=== PATIENT | female | born 1955 | race Caucasian/White ===

== ENCOUNTER → 2017-02-04 | Outpatient (CLI) | payer BC ==
[~2017-02-04] MED LIST: AMLO-110 PO; ATEN50TA PO; FOLI1TAB7 PO; FRCT/ PO; GABA-113 PO; GLC/500 PO; LISI40TA PO; LORA-741 PO; MELO15TA10 PO; METH2.5T PO; SERT-234 PO
--- NOTE | 2017-02-05 12:40 | MAMMOGRAPHY REPORT ---
BILATERAL DIGITAL SCREENING MAMMOGRAM TOMOSYNTHESIS WITH CAD: 02/04/2017 CLINICAL HISTORY: Routine screening. Patient has no complaints. TECHNIQUE: Breast tomosynthesis in addition to standard 2D mammography was performed. Current study was also evaluated with a Computer Aided Detection (CAD) system. COMPARISON: Comparison is made to exams dated: 01/05/2016 mammogram, 01/03/2014 mammogram, 01/04/2015 mammogram, 01/01/2013 mammogram, 12/27/2011 mammogram, and 11/30/2010 mammogram - [facility]. BREAST COMPOSITION: The tissue of both breasts is heterogeneously dense, which may obscure small ma sses. FINDINGS: A square dense mole marker overlies the 11:00 to 12:00 anterior left breast. There are a few benign-appearing calcifications scattered bilaterally. No new suspicious mass, architectural di stortion or cluster of microcalcifications is seen. IMPRESSION: ACR BI-RADS CATEGORY 1: NEGATIVE There is no mammographic evidence of malignancy. A 1 year screening mammogram is recommended. The p atient will receive written notification of the results. Approximately 10% of breast cancers are not detected with mammography. A negative mammographic repor t should not delay biopsy if a clinically suggestive mass is present. Melina Herndon M.D. ay/:02/04/2017 17:41:42 [employer]: Indy RON(Mitch)(M), [facility] letter sent: Normal 1/2 BI-RADS Code: ACR BI-RADS Category 1: Negative
== END | disposition home or self-care (01) ==
LOC: C.MAMM 11:59
PROVIDERS: ATTEND Obstetrics & Gynecology
DX: Z12.31 Encounter for screening mammogram for malignant neoplasm of breast (principal)

== ENCOUNTER → 2017-03-19 | Outpatient (CLI) | payer BC | END | disposition home or self-care (01) | LOC: C.PAPS 15:47 | PROVIDERS: ATTEND Obstetrics & Gynecology | DX: Z01.419 Encounter for gynecological examination (general) (routine) without abnormal findings (principal); N95.2 Postmenopausal atrophic vaginitis ==

== ENCOUNTER → 2017-06-04 | Outpatient (CLI) | payer BC ==
[2017-06-04 10:40] LABS: INSULIN FASTING 11.2 mU/L (3-25)
[2017-06-04 12:36] LABS: ALT/SGPT 49 U/L (12-78); AST/SGOT 25 U/L (15-37); BLOOD UREA NITROGEN 20 mg/dl (7-18); BUN/CREATININE RATIO 25.7 (10-20); CALCIUM 9.4 mg/dl (8.5-10.1); CARBON DIOXIDE 26 mmol/L (21-32); CHLORIDE 106 mmol/L (98-107); CREATININE 0.77 mg/dl (0.60-1.20); GLUCOSE 87 mg/dl (70-99); GLUCOSE,FASTING 87 mg/dl (70-99); POTASSIUM 4.2 mmol/L (3.5-5.1); SODIUM 139 mmol/L (136-145)
[2017-06-04 12:39] LABS: ALKALINE PHOSPHATASE 103 U/L (45-117); PHOSPHORUS 3.8 mg/dl (2.5-4.9)
[2017-06-04 14:28] LABS: CALCULATED INSULIN SENSITIVITY 0.335; GLUCOSE LOG 1.9395
== END | disposition home or self-care (01) ==
LOC: C.LAB1850 09:16
PROVIDERS: ATTEND Obstetrics & Gynecology
DX: E16.1 Other hypoglycemia (principal)

== ENCOUNTER → 2018-02-09 | Outpatient (CLI) | payer BC ==
[~2018-02-09] MED LIST changes: -FOLI1TAB7 PO; +FOLI1TAB8 PO
--- NOTE | 2018-02-10 07:46 | MAMMOGRAPHY REPORT ---
BILATERAL DIGITAL SCREENING MAMMOGRAM TOMOSYNTHESIS WITH CAD: 02/09/2018 CLINICAL HISTORY: Routine screening. TECHNIQUE: Breast tomosynthesis in addition to standard 2D mammography was performed. Current study was also evaluated with a Computer Aided Detection (CAD) system. COMPARISON: Comparison is made to exams dated: 02/04/2017 mammogram, 01/05/2016 mammogram, 01/04/2015 m ammogram, 01/03/2014 mammogram, 01/01/2013 mammogram, and 12/27/2011 mammogram - [facility]. BREAST COMPOSITION: The tissue of both breasts is heterogeneously dense, which may obscure small mas ses. FINDINGS: There are benign rim calcifications in the breasts. No suspicious mass, architectural dist ortion or cluster of microcalcifications is seen. IMPRESSION: ACR BI-RADS CATEGORY 1: NEGATIVE There is no mammographic evidence of malignancy. A 1 year screening mammogram is recommended. The pa tient will receive written notification of the results. Approximately 10% of breast cancers are not detected with mammography. A negative mammographic report should not delay biopsy if a clinically suggestive mass is present. Melina Herndon M.D. ay/:02/09/2018 12:42:24 [employer]: Jerica RON(Mitch)(Travis), [facility] letter sent: Normal 1/2 BI-RADS Code: ACR BI-RADS Category 1: Negative
== END | disposition home or self-care (01) ==
LOC: C.MAMM 12:17
PROVIDERS: ATTEND Obstetrics & Gynecology
DX: Z12.31 Encounter for screening mammogram for malignant neoplasm of breast (principal)

== ENCOUNTER → 2018-03-31 | Outpatient (CLI) | payer BC ==
[~2018-03-31] MED LIST changes: +ASCO1CAP3 PO; +ATOR-24 PO; +DICL-201 PO; +MULT-506 PO; +VALA500T60 PO; +ZOLP5TAB6 PO; +ZOVIRAX 5% TP; +[UNRECOGNIZED DRUG - OTHER] PO
== END | disposition home or self-care (01) ==
LOC: C.PAPS 13:50
PROVIDERS: ATTEND Obstetrics & Gynecology
DX: Z01.419 Encounter for gynecological examination (general) (routine) without abnormal findings (principal); N87.1 Moderate cervical dysplasia

== ENCOUNTER 2024-10-26 14:28 | Inpatient (IN) ==
--- NOTE | 2024-10-26 14:46 | ED Triage Note ---
Date of Service October 26, 2024 Provider in Triage Author: Kaylyn Pastor History of Present Illness This patient was briefly evaluated while in triage. An abbreviated physical exam was performed. This patient is a 69-year-old Female who presents to the ED for evaluation of nausea and vomiting since Friday. Has had diarrhea. Feels dizzy and lightheaded. Pt. unable to keep down food and fluids. Denies fevers. Has had some chills. No cough or URI symptoms. Physical Exam VITALS: Vitals are noted on the nurse's note and reviewed by myself. GENERAL: This is a 69 year old female, in no acute distress, nondiaphoretic, well-developed well-nourished. SKIN: No obvious rashes, edema, erythema HEAD: Normocephalic atraumatic. EYES: Conjunctivae without injection, sclerae without icterus. NECK: No JVD. LUNGS: No retractions or accessory muscle use. MUSCULOSKELETAL: Normal gait. NEURO: Patient was alert and oriented to person place and time. No focal neurological deficits. Initial orders for labs and / or imaging were placed and patient was placed in the waiting area until a bed is available. Please see further documentation for the full ED course.
[2024-10-26] MEDS: ONDANSETRON INJ 2 MG/ML 2 ML VIAL IV STA (16:03)
[2024-10-26 16:21] LABS: Basophils # (auto) 0.06 K/uL (0.00-0.20); Basophils % (auto) 0.5 %; Eosinophils # (auto) 0.01 K/uL (0.00-0.50); Eosinophils % (auto) 0.1 %; Hemoglobin 13.7 g/dl (12.0-16.0); Immature Granulocytes # (auto) 0.03 K/uL (0.01-0.20); Immature Granulocytes % (auto) 0.2 %; Lymphocytes # (auto) 2.36 K/uL (1.20-3.40); Lymphocytes % (auto) 19.7 %; Mean Corpuscular Hemoglobin 30.6 pg (25.0-34.0); Mean Corpuscular Hgb Conc 35.1 g/dL (32.0-36.0); Mean Corpuscular Volume 87.2 fL (80.0-100.0); Mean Platelet Volume 9.8 fL (9.4-12.4); Monocytes # (auto) 1.25 K/uL (0.11-0.59); Monocytes % (auto) 10.4 %; Neutrophils % (auto) 69.1 %; Platelet Count 360 K/uL (130-400); RDW Coefficient of Variation 12.1 % (11.5-14.5); RDW Standard Deviation 39.2 fL (36.4-46.3); Red Blood Count 4.47 M/uL (4.20-5.40); White Blood Count 12.01 K/ul (4.8-10.8)
[2024-10-26 16:38] LABS: Albumin Globulin Ratio 1.9 (0.9-2); BUN Creatinine Ratio 24.3 (10-20); Bilirubin,Total 1.3 mg/dl (0.2-1.0); Calcium 9.9 mg/dl (8.6-10.3); Creatinine Clr Calc Pharmacy 55.7 ml/min; Globulin 2.7 gm/dl (2.5-4.0); Potassium 2.8 mmol/L (3.5-5.1); Total Protein 7.7 gm/dl (6.0-8.3)
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
[2024-10-26 17:50] LABS: Magnesium 2.1 mg/dl (1.7-2.4)
[2024-10-26] MEDS: FAMOTIDINE 20MG IV PUSH 20 MG/5 ML SYR IV STA (18:14)
[2024-10-26] MEDS: PROMETHAZINE 12.5 MG/50.5 ML BAG IV STA (18:18)
[2024-10-26] MEDS: SODIUM CHLORIDE 0.9% 1,000 ML IV ONE (18:18)
--- NOTE | 2024-10-26 18:30 | XRay Report ---
EXAM: Radiograph of the Chest 1 View INDICATION: Dizziness. TECHNIQUE: Frontal view of the chest. COMPARISON: 04/03/2018 FINDINGS: Lungs and pleural spaces: No consolidation or pulmonary edema. No pleural effusion or pneumothorax. Heart: Shape and configuration within normal limits allowing for technique. Mediastinum: Normal contour. Bones/joints: Stable mild scoliotic curvature of the thoracic spine. Visualized portion of the posterior upper lumbar fusion hardware grossly intact. No acute osseous abnormality. Soft tissues: No abnormality noted. No radiopaque foreign body noted. Upper abdomen: No abnormality noted. IMPRESSION: No acute cardiopulmonary disease. ACT 112: Negative or not required by law. Electronically signed by Millie Izaguirre 10-26-2024 6:29 PM
[2024-10-26 18:47] LABS: Adenovirus PCR Not Detected (NotDetected); Bordetella parapertussis PCR Not Detected (NotDetected); Bordetella pertussis PCR Not Detected (NotDetected); Chlamydia pneumoniae PCR Not Detected (NotDetected); Coronavirus 229E PCR Not Detected (NotDetected); Coronavirus CoV-2 (COVID19)PCR Not Detected (NotDetected); Coronavirus HKU1 PCR Not Detected (NotDetected); Coronavirus NL63 PCR Not Detected (NotDetected); Coronavirus OC43PCR Not Detected (NotDetected); Human Metapneumovirus PCR Not Detected (NotDetected); Influenza A PCR Not Detected (NotDetected); Influenza B PCR Not Detected (NotDetected); Mycoplasma pneumoniae PCR Not Detected (NotDetected); Parainfluenza Virus 1 PCR Not Detected (NotDetected); Parainfluenza Virus 2 PCR Not Detected (NotDetected); Parainfluenza Virus 3 PCR Not Detected (NotDetected); Parainfluenza Virus 4 PCR Not Detected (NotDetected); Respiratory Syncytial VirusPCR Not Detected (NotDetected); Rhinovirus/Enterovirus PCR Not Detected (NotDetected)
[2024-10-26] MEDS: OPTIRAY 320 100ml IV ONE (18:58)
[2024-10-26 19:52] LABS: Appearance Urine Clear (Clear); Bacteria Urine Automated None Seen (None Seen); Bilirubin Urine Negative (Negative); Blood Urine Negative (Negative); Cast Urine Automated 0-2 /lpf (0-2); Color Urine Yellow; Epithelial Cell Urine Auto 0-2 /hpf (0-2); Glucose Urine UA Negative (Negative); Ketones Urine Trace (Negative); Leukocyte Esterase Urine 1+ (Negative); Nitrite Urine Negative (Negative); Protein Urine Negative (Negative); RBC Urine Automated 0-2 /hpf (0-2); Specific Gravity Urine 1.022 (1.000-1.030); Urobilinogen Urine Negative (Negative); WBC Urine Automated 0-5 /hpf (0-5); pH Urine 7.5 (4.5-7.5)
--- NOTE | 2024-10-26 20:00 | CT Scan Report ---
CT ABDOMEN and PELVIS with INTRAVENOUS CONTRAST HISTORY: Abdominal pain TECHNIQUE: CT abdomen and pelvis with contrast. IV CONTRAST: 100 mL of OMNIPAQUE 300 ENTERIC CONTRAST: Not Given COMPARISON: None FINDINGS: LOWER CHEST:Unremarkable. LIVER: No focal lesion identified. GALLBLADDER/BILIARY: Unremarkable gallbladder. No abnormal biliary dilatation. SPLEEN: Unremarkable. PANCREAS: Unremarkable. ADRENALS: Unremarkable. KIDNEYS: Tiny cysts, cortical scarring. No stones or hydronephrosis identified. PERITONEUM/RETROPERITONEUM. No lymphadenopathy by size criteria. No aortic aneurysm. GASTROINTESTINAL: No obstruction. Normal appendix. Multiple loops of small bowel demonstrate inflammatory changes with mild wall thickening and mild fluid distention. Colonic diverticulosis without evidence of diverticulitis. Duodenal diverticula. Mild gastric wall thickening. REPRODUCTIVE: Prominent periuterine vessels on the left side. Fibroids are present. In addition, the endometrium appears prominent in size on CT. URINARY BLADDER: Moderately distended. BONES: No acute findings. Lumbar spine the posterior instrumented fusion with laminectomies. IMPRESSION: Findings suggesting gastroenteritis. Normal appendix is identified. Fibroid uterus. Prominent periuterine vessels are identified, especially on the left side of the uterus. Such findings could be seen with pelvic congestion syndrome. In addition, the endometrium appears prominent in size on CT. This final finding would be an abnormality in a postmenopausal patient. Recommend gynecology evaluation to exclude malignancy. Electronically signed by Adelso Sands 10-26-2024 7:59 PM
[2024-10-26] MEDS: PROMETHAZINE 25 MG/51 ML BAG IV STA (20:47)
[2024-10-26] MEDS: SUCRALFATE 1 GM/10 ML UDC PO STA (20:49)
[2024-10-26] MEDS: DICYCLOMINE HCL 10 MG/ML 2 ML AMP/VIAL IM ONE (20:50)
[2024-10-26] MEDS: D5W AND NSS 1,000 ML IV SCH (21:29)
--- NOTE | 2024-10-26 23:02 | Emergency Department Note ---
ED Visit Note I was called to see the patient as she was not feeling well. She had been set for discharge. She had been in the ED for around 8-1/2 hours. She had been diagnosed with gastroenteritis. She had received IV Phenergan, IV Zofran, oral Carafate and IV saline. I talked with the patient, she was weak, nauseated and just did not feel well. She did not feel safe with discharge, At this point, hospitalization for further nausea control, further hydration was felt warranted. Unfortunately, the patient has not yet been able to provide a stool sample for testing. I spoke with case management, the on-call hospitalist was consulted. .
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
[2024-10-26] MEDS ORDERED: ACETAMINOPHEN 325 MG TAB PO PRN (23:09)
[2024-10-26 23:51] LABS: Thyroid Stimulating Hormone 1.182 uIu/ml (0.300-4.500)
[2024-10-26] MEDS: NovoLIN-R INSULIN PER UNIT CHARGE IV STA (23:54)
[2024-10-26] MEDS ORDERED: oxyCODONE HCL IR 5 MG TAB (IMMEDIATE RELEASE) PO PRN (23:55)
[2024-10-27] MEDS: ONDANSETRON HOME PACK 4MG OD TAB PO ONE (00:04)
[2024-10-27] MEDS: POTASSIUM CHLORIDE PWD 20 MEQ PACK PO STA (00:05)
[2024-10-27] MEDS: traZODone HCL 100 MG TAB PO SCH (00:08)
[2024-10-27] MEDS: NSS + 20MEQ KCL 20 MEQ/1,000 ML BAG IV ONE (00:14)
[2024-10-27] MEDS: LORazepam 0.5 MG TAB PO PRN (00:14)
[2024-10-27] MEDS: PROMETHAZINE 6.25 MG/50.25 ML BAG IV PRN (00:19)
[2024-10-27] MEDS: POTASSIUM CHLORIDE CRTAB 20 MEQ TABCR PO STA (03:24)
--- NOTE | 2024-10-27 03:53 | Ultrasound Report ---
EXAM: US gallbladder CLINICAL HISTORY: Hx of RUQ pain, Nausea. TECHNIQUE: An ultrasound examination of the RUQ was performed using greyscale imaging and color Doppler. Scanning was performed with the patient in the supine position. COMPARISON: CT abd 10/26/2024. FINDINGS: Liver: Liver size: Measurements in length 14.3 cm. The liver appears normal in size with homogeneous echotexture. No evidence of focal lesions, cysts, or masses. Hepatic vasculature appears normal. Gallbladder: Gallbladder size: The gallbladder is visualized and appears normal in size and shape. No gallstones, wall thickening (1 mm, thick), or pericholecystic fluid was noted. No evidence of gallbladder wall edema or signs of acute cholecystitis. Biliary Tree: Common bile duct diameter: 5.6 mm. The common bile duct is within normal limits in caliber and not dilated. No evidence of choledocholithiasis or biliary obstruction. Right Kidney: Right kidney size: Limited view. The right kidney appears normal in size with preserved corticomedullary differentiation. No evidence of hydronephrosis. A trace of perinephric fluid was noted. IMPRESSION: 1. Normal findings in the liver, gallbladder, and biliary tree. 2. Limited views of the right kidney, however, a trace of perinephric fluid was noted. Clinical correlation and further evaluation are advised. 3. No interval changes. Electronically signed by Maximiliano Elmore 10-27-2024 03:53 AM
--- OUTSIDE RECORDS SUMMARY | 2024-10-27 04:39 | External Medical Summary | Summary of Care ---
Author Name Unknown Organization [facility] Address [address] [place] [address] Phone [phone] Care Team Providers Care Guidance Secretary Name Role Phone Tommy Barillas DO Primary Care Provider [phone] Reason for Visit * Reason Comments eRx-Medication Refill Encounter Details Date Type Department Care Team (Late st Contact Info) Description 10/10/[facility]24 [facility] [address] [facility] [place] [address] Tommy Barillas DO [address] [facility] [place] [address] Reactive depression; Spinal stenosis of lumbar region with neurogenic claudication Allergies Active Allergy Reactions Criticality Noted Date Comments Sulfa Antibiotics Edema face/lips/tongue High 2001 documented as of this encounter (statuses as of 10/11/2024) Medications Multiple Vitamins-Calcium (ONE-A-DAY WOMENS FORMULA) Tablet Take 1 Tablet by mouth in the morning. Active valACYclovir HCl 500 MG Oral Tablet (Valtrex)Indications:Re current cold sores Take by mouth 1 Tablet in the morning. 90 Tablet 3 022 Active Ventolin HFA 108 (90 Base) MCG/ACT Inhalation Aerosol Solution Inhale by mouth 2 Puffs every 4 hours as needed for Wheezing. 18 g 3 022 Active Calcium Carbonate 600 MG Oral Tablet (Calcium 600) Take 1 Tablet by mouth in the morning. Active Fluorouracil 5 % External Cream (Efudex) Apply to affected areas twice daily for 3 weeks. For rough areas on face. 40 g 1 024 Active Folic Acid 1 MG Oral TabletIndications:Rheum atoid arthritis involving multiple sites with positive rheumatoid factor (HCC) TAKE 3 TABLETS BY MOUTH IN THE MORNING 270 Tablet 3 024 Active Atenolol 50 MG Oral Tablet (Tenormin)Indications:H TN, goal below 140/90 TAKE 1 AND 1/2 TABLETS BY MOUTH IN THE MORNING 135 Tablet 2 024 Active amLODIPine Besylate 5 MG Oral Tablet (Norvasc)Indications:HT N, goal below 140/90 TAKE 2 TABLETS BY MOUTH BEFORE BEDTIME 180 Tablet 1 024 Active Gabapentin 300 MG Oral Capsule (Neurontin)Indications: Spinal stenosis of lumbar region with neurogenic claudication TAKE 2 CAPSULES BY MOUTH IN THE MORNING AND 2 CAPSULES BY MOUTH BEFORE BEDTIME 360 Capsule 3 024 Active tiZANidine HCl 2 MG Oral Capsule Take 1 Capsule by mouth 3 times a day as needed for Muscle spasms. 135 Capsule 3 024 Active traZODone HCl 50 MG Oral Tablet (Desyrel)Indications:Pe rsistent insomnia TAKE 2 TABLETS BY MOUTH BEFORE BEDTIME 180 Tablet 1 024 Active Atorvastatin Calcium 40 MG Oral Tablet (Lipitor)Indications:Pu re hypercholesterolemia TAKE 1 TABLET BY MOUTH IN THE MORNING 90 Tablet 3 024 Active Meloxicam 15 MG Oral Tablet (Mobic) TAKE 1 TABLET BY MOUTH EVERY MORNING 90 Tablet 3 024 Active Leflunomide 10 MG Oral Tablet (Arava)Indications:Rheu matoid arthritis involving multiple sites with positive rheumatoid factor (HCC) TAKE 1 TABLET BY MOUTH IN THE MORNING 90 Tablet 024 Active HYDROcodone-Acetaminoph en 7.5-325 MG Oral TabletIndications:Rheum atoid arthritis involving multiple sites with positive rheumatoid factor (HCC),Sacroiliitis (HCC) Take 1 Tablet by mouth 3 times a day as needed for Pain, Severe. 90 Tablet 024 Active DULoxetine HCl 60 MG Oral Capsule Delayed Release Particles (Cymbalta)Indications:R eactive depression,Spinal stenosis of lumbar region with neurogenic claudication TAKE 1 CAPSULE BY MOUTH IN THE MORNING. DO NOT CUT, CRUSH OR CHEW. 30 Capsule 5 Active DULoxetine HCl 60 MG Oral Capsule Delayed Release Particles (Cymbalta)Indications:R eactive depression,Spinal stenosis of lumbar region with neurogenic claudication Take 1 Capsule by mouth in the morning. Do not cut, crush or chew. 30 Capsule 5 024 2023 Discontinued documented as of this encounter (statuses as of 10/11/2024) Active Problems Problem Noted Date Diagnosed Date Reactive depression 06/04/2023 Encounter for long-term (current) use of medicat ions 02/07/2023 Spinal stenosis of lumbar re gion with neurogenic claudication 04/23/2021 Sacroiliitis 11/14/2020 Pure hypercholesterolemia 10/07/2018 Persistent insomnia 10/07/2018 Hx of actinic keratosis 06/24/2018 Functional diarrhea 12/05/2017 Rheumatoid arthritis involvi ng multiple sites with positive rheumatoid factor 03/18/2016 Disorder of intervertebral disc 09/17/2010 Chronic rhinitis 08/27/2008 HTN (hypertension) 07/20/2008 Mitral valve prolapse 01/02/2004 Other cataract documented as of this encounter (statuses as of 10/11/2024) Resolved Problems Problem Noted Date Diagnosed Date Resolved Date History of 2019 novel reynoso virus disease (COVID-19) 11/27/2021 12/09/2022 Abdominal pain, right upper quadrant 12/05/2017 12/09/2022 RA (rheumatoid arthritis) 12/23/2012 Acute URI 08/27/2008 03/23/2009 Overview (03/23/2009): Resolved per Benign Acute Dxs Protocol Acute sinusitis 08/27/2008 03/23/2009 Overview (03/23/2009): Resolved per Benign Acute Dxs Protocol Cough 08/27/2008 11/13/2017 ADVANCE DIRECTIVE INFORMATION 08/13/2005 12/09/2022 Overview (08/13/2005): No, Advance Directive brochure given to patient. #[id number] 01/24/2004 Overview (02/23/2010): Renamed Per Clinical Trials Billing Project. Pt is a participant in the [facility] (Consortium of Rheumatology Researchers of [place]) national data collection study. For further information please call Dr Jesus Izaguirre or Jazmín Samuels, RN, CCRC at [phone] [facility] RESEARCH OTHER*[id number] 01/24/2004 05/07/2010 Overview (02/23/2010): Renamed Per Clinical Trials Billing Project. Pt is a participant in the [facility] (Consortium of Rheumatology Researchers of [facility]) national data collection study. For further information please call Dr Jesus Izaguirre or Jazmín Samuels, RN, CCRC at [phone] Arthritis, rheumatoid 2015 documented as of this encounter (statuses as of 10/11/2024) Immunizations Name Administration Dates Next Due COVID-19 mRNA, LNP-s, No Pre serve, 2-Dose Series (Moderna) 10/05/2021,02/09/2021,01/12/2021 COVID-19, MRNA-LNP, PF, 30 M CG/0.3 mL, 12 YRS AND ABOVE, IM (PFIZER-Comirnaty) 07/30/2023 COVID-19, MRNA-LNP, PF, 50 M CG/0.5 mL, 12 YRS AND ABOVE, IM (MODERNA-Spikevax) 08/31/2024 COVID-19, mRNA, LNP-s, PF, B ooster, 100mcg/0.5mg (Moderna) 06/05/2022 H1N1 2009 Influenza, IM 11/21/2009 MMR - Measles/Mumps/Rubella Vaccine 05/05/2019 Pneumococcal Conjugate Vacc, 13 Valent (Prevnar) 09/02/2017 Pneumococcal Conjugate Vacci ne, 20-valent ([id number]) 12/09/2022 Pneumococcal Polysaccharide PPV23 (Pneumovax) 11/18/2011,08/19/2006 Season Influenza, Quad, PF, Adjuvanted, 65+ Yrs, IM (FLUAD) 07/30/2023 Seasonal Influenza Vac., MDV , IM, 0.5 mL (Fluzone) 08/29/2014,08/28/2013,01/19/2013(Defer red: Patient Refused),09/16/2012,09/25/2011, 010,12/18/2009,09/28/2008,08/26/2007,1 Seasonal Influenza, High Dos e, Trivalent, PF, IM (Fluzone HD) 07/30/2024 Seasonal Influenza, PF, 6 M & above, IM , (FluLaval or Fluzone) 07/19/2020,07/26/2019,10/07/2018,08/22 Seasonal Influenza, Quadriva lent Hd (Fluzone Hd) 07/25/2022 Seasonal Influenza, Quadriva lent, No Preserve, IM 09/27/2021,09/02/2016,09/26/2015 TDAP (age 10 and older)(Boostrix) 01/19/2013 Zoster Vaccine Recombinant (Shingrix) 12/15/2018 ,10/07/2018 documented as of this encounter Social History Tobacco Use Types Packs/Day Years Used Date Smoking Tobacco: Never Smokeless Tobacco: Never Alcohol Use Standard Drinks/Week Comments Yes 0 (1 standard drink = 0.6 oz pur e alcohol) social PHQ-2 Answer Date Recorded PHQ Adult Total Score 0 10/07/2023 Hunger Vital Sign Answer Date Recorded Within the past 12 months, y ou worried that your food would run out before you got the money to buy more. Never true 12/29/19 21 Within the past 12 months, t he food you bought just didn't last and you didn't have money to get more. Never true 12/29/2020 Utilities Answer Date Recorded Do you have trouble paying y our heating, water, or electric bill? (Adult - for ages 18 years and over) Not on file 04/27/2024 Is your family able to pay t he heat, water, or electric bill? (Household - for ages 0-17 years) Not on file 04/27/2024 Does your family have access to good internet? (Household - for ages 0-17 years) Not on file 04/27/2024 Social Connections Answer Date Recorded How often do you feel lonely or isolated from those around you? (Adult - for ages 18 years and over) Not on file 04/27/2024 Comments No Sex and Gender Information Value Date Recorded Sex Assigned at Female 08/18/2023 11:35 AM EDT Legal Sex Female 7:13 AM EST Gender Identity Female 08/18/2023 11:35 AM EDT Sexual Orientation Straight 08/18/2023 11 :35 AM EDT Occupation Industry Job Start Date Job End Date Teacher Not on file Not on file Not on file documented as of this encounter Functional Status * Are you deaf or do you have serious difficulty hearing? Answer Date of Assessment Author No 04/23/2021 4:23 PM EDT Cristofer Sánchez RN * Are you blind or do you have serious difficulty seeing, even when wearing glasses? Answer Date of Assessment Author No 04/23/2021 4:23 PM EDT Cristofer Sánchez RN * Do you have serious difficulty walking or climbing stairs? (5 years old or older) Answer Date of Assessment Author Yes 04/24/2021 9:03 AM EDT Jf Quijano RN * Do you have difficulty dressing or bathing? (5 years old or older) Answer Date of Assessment Author No 04/23/2021 4:41 PM EDT Cristofer Sánchez RN * Because of a physical, mental, or emotional condition, do you have difficulty doing errands alone such as visiting a doctors office or shopping? (15 years old or older) Answer Date of Assessment Author Yes 04/23/2021 4:41 PM EDT Cristofer Sánchez RN documented as of this encounter Mental Status * Because of a physical, mental, or emotional condition, do you have serious difficulty concentrating, remembering, or making decisions? (5 years old or older) Answer Entry Date Author No 04/23/2021 4:23 PM EDT Cristofer Sánchez RN documented in this encounter Miscellaneous Notes * Telephone Encounter - Colby Godinez [facility] - 10/11/2024 2:36 PM ESTSigned Prescriptions: Disp Refills DULoxetine HCl 60 MG Oral Capsule Delayed *30 Cap*5 Sig: TAKE 1CAPSULE BY MOUTH IN THE MORNING. DO NOT CUT, CRUSH OR CHEW.Authorizing Provider: TOMMY BARILLAS User: COLBY GODINEZ documented in this encounter Plan of Treatment Upcoming Encounters Date Type Department Care Team (Late st Contact Info) Description 11/12/2024 10:15 AM EST Office Visit Dermatology [facility] [address] [facility] [place] [address] Jesus Gleason MD [address] [place] [address] 02/25/2025 1:00 PM EDT Office Visit Family Practice [facility] [address] [facility] [place] [address] Tommy Barillas, DO [address] [facility] [place] [address] 09/07/2025 10:00 AM EDT Office Visit Rheumatology [place] [address] [employer] [place] [address] Anil Hansen MD [facility] [place], [place] [address] Scheduled Procedures Name Priority Associated Diagnoses Date/Ti me COLONOSCOPY FLEXIBLE PROXIMA L DIAGNOSTIC Recall Encounter for screening colonoscopy Health Maintenance Due Date Last Done Comments Hepatitis C Screening 1975 Cologuard 2002 Fecal Occult Blood Test 2002 Sigmoidoscopy 2002 DTap/Tdap Vaccines (2 - Td or Tdap) 01/19/2023 01/19/2013 Adult Wellness Visit 2023 Depression Monitoring 10/07/2024 10/07/2023 Albumin/Creatinine Ratio 12/04/2024 022, 08/09/2014, 06/04/2013 GFR 08/04/2025 08/04/2024, 01/09, 08/18/2023, Additional history exists Mammogram 08/05/2025 08/05/2024, 07/12, 08/04/2023, Additional history exists DXA Scan 11/06/2027 11/06/2020 Colonoscopy 12/19/2027 12/19/2017, 07/2018, 11/08/2008 Colorectal Cancer Screening 12/19/2027 Lipid Panel 08/04/2029 08/04/2024, 06/11, 06/30/2018, Additional history exists Zoster Vaccines Completed 12/15/2018, 10/07/2018 Pneumococcal Vaccine: 65+ Years Completed 12/09/2022, 09/02/2017, 11/18/2011, Additional history exists Pap Smear Discontinued 03/08/2024, 05/2022, 04/16/2019, Additional history exists Influenza Vaccine (FLU shot) Completed 07/30/2024, 08/05/2023, 07/30/2023, Additional history exists COVID-19 Vaccine Completed 08/31/2024, , 06/05/2022, Additional history exists HPV (Gardasil) Vaccine Aged Out No lo nger eligible based on patient's age to complete this topic Hepatitis B Vaccine Aged Out No longe r eligible based on patient's age to complete this topic MENINGOCOCCAL (MENACTRA/MENVEO) Aged Out No longer eligible based on patient's age to complete this topic documented as of this encounter Medical Devices Implanted Type Area [employer] Device Identifier Shelf Expiration Date Model / Serial / Lot Dbx 10cc [id number] - [id number] - [id number] Implanted:Qt y: 1 on 04/23/2021 by Dewey Bennett MD at [facility] Tissue - Human MUSCULOSKELETAL TRANSPLANT FND [id number] 08/17/2022 [id number] / [id number] / LOT NA Pivox Oblique Lateral Spinal System Interbody Implanted:Qt y: 1 on 04/23/2021 by Dewey Bennett MD at OR [facility] N/A: Spine Lumbar Medtronic 06/10/2026 [id number] / / [id number] Description:Mat'l: Peek/lui nium alloy Vitoss Bimodal Foam Pack 2.5cc - [id number] - [id number] Implanted:Qt y: 1 on 04/23/2021 by Dewey Bennett MD at OR [facility] NEFTALY : SPINE 06/06/2022 / [id number] / [id number] Graft Bone Dbm Matrix 2.5x5cm - [id number] - [id number] Implanted:Qt y: 1 on 04/23/2021 by Dewey Bennett MD at OR [facility] [employer] [id number] 11/17/2023 [id number] / [id number] / LOT NA Vitoss Bimodal Foam Pack 2.5cc - [id number] - [id number] Implanted:Qt y: 1 on 04/23/2021 by Dewey Bennett MD at OR [facility] NEFTALY : SPINE [id number] 01/07/20221901 / [id number] / [id number] Screw Ped 6.5x45mm 124.465 - [id number] Implanted:Qt y: 2 on 04/23/2021 by Dewey Bennett MD at OR [facility] N/A: Spine Lumbar [employer] 124.465 / / 124.655 Globus Paramjit 55mm Implanted:Qt y: 1 on 04/23/2021 by Dewey Bennett MD at OR [facility] N/A: Spine Lumbar [employer] 124.655 / / 124.660 Globus Paramjit 60mm Implanted:Qt y: 1 on 04/23/2021 by Dewey Bennett MD at OR [facility] N/A: Spine Lumbar [employer] 124.660 / / documented as of this encounter Visit Diagnoses Diagnosis Reactive depression Dysthymic disorder Spinal stenosis of lumbar region with neurogenic claudication Spinal stenosis, lumbar region, with neurogenic claudication documented in this encounter Advance Directives * Full Code (Latest Code Status on File) Date Activated Date Inactivated Comments 04/23/2021 3:24 PM 04/26/2021 2:34 PM This order r eflects the patients wishes and were consensually agreed upon. * Full Code Date Activated Date Inactivated Comments 04/23/2021 7:23 AM 04/23/2021 3:24 PM This order r eflects the patients wishes and were consensually agreed upon. Care Teams Guidance Secretary Relationship Specialty Start Date End Date Tommy Barillas DO [address] [place] [address] PCP - General Family Medicine 10/07/18 documented as of this encounter
--- OUTSIDE RECORDS SUMMARY | 2024-10-27 04:40 | External Medical Summary | Summary of Care ---
Author Name Unknown Organization [facility] Address [address] [place] [address] Phone [phone] Care Team Providers Care Extruding Press Operator Name Role Phone SekouLalit drew Nati DO Primary Care Provider [phone] Reason for Visit * Reason Comments Rheum Follow Up Recheck RA Encounter Details Date Type Department Care Team (Late st Contact Info) Description 09/07/2024 9:00 AM EDT Office Visit Rheumatology [place] [id number] [place] [address] Anil Hansen MD [address] [place] [address] Rheumatoid arthritis involving multiple sites with positive rheumatoid factor (HCC)*; Encounter for long-term (current) use of medications; Spinal stenosis of lumbar region with neurogenic claudication Allergies Active Allergy Reactions Criticality Noted Date Comments Sulfa Antibiotics Edema face/lips/tongue High 2001 documented as of this encounter (statuses as of 09/07/2024) Medications Medication Sig Dispensed Refills Start Date End Date Status Multiple Vitamins-Calcium (ONE-A-DAY WOMENS FORMULA) Tablet Take 1 Tablet by mouth in the morning. Active valACYclovir HCl 500 MG Oral Tablet (Valtrex)Indications:Recu rrent cold sores Take by mouth 1 Tablet in the morning. 90 Tablet 3 07/16/2022 Active Ventolin HFA 108 (90 Base) MCG/ACT Inhalation Aerosol Solution Inhale by mouth 2 Puffs every 4 hours as needed for Wheezing. 18 g 3 07/16/2022 Active Calcium Carbonate 600 MG Oral Tablet (Calcium 600) Take 1 Tablet by mouth in the morning. Active Fluorouracil 5 % External Cream (Efudex) Apply to affected areas twice daily for 3 weeks. For rough areas on face. 40 g 1 11/14/2023 Active Folic Acid 1 MG Oral TabletIndications:Rheumat oid arthritis involving multiple sites with positive rheumatoid factor (HCC) TAKE 3 TABLETS BY MOUTH IN THE MORNING 270 Tablet 3 02/10/2024 Active Atenolol 50 MG Oral Tablet (Tenormin)Indications:HTN , goal below 140/90 TAKE 1 AND 1/2 TABLETS BY MOUTH IN THE MORNING 135 Tablet 2 02/28/2024 Active DULoxetine HCl 60 MG Oral Capsule Delayed Release Particles (Cymbalta)Indications:[place] ctive depression,Spinal stenosis of lumbar region with neurogenic claudication Take 1 Capsule by mouth in the morning. Do not cut, crush or chew. 30 Capsule 5 04/14/2024 Active amLODIPine Besylate 5 MG Oral Tablet (Norvasc)Indications:HTN, goal below 140/90 TAKE 2 TABLETS BY MOUTH BEFORE BEDTIME 180 Tablet 1 07/06/2024 Active Gabapentin 300 MG Oral Capsule (Neurontin)Indications:Sp inal stenosis of lumbar region with neurogenic claudication TAKE 2 CAPSULES BY MOUTH IN THE MORNING AND 2 CAPSULES BY MOUTH BEFORE BEDTIME 360 Capsule 3 07/13/2024 Active tiZANidine HCl 2 MG Oral Capsule Take 1 Capsule by mouth 3 times a day as needed for Muscle spasms. 135 Capsule 3 07/19/2024 Active traZODone HCl 50 MG Oral Tablet (Desyrel)Indications:Pers istent insomnia TAKE 2 TABLETS BY MOUTH BEFORE BEDTIME 180 Tablet 1 08/10/2024 Active Atorvastatin Calcium 40 MG Oral Tablet (Lipitor)Indications:Pure hypercholesterolemia TAKE 1 TABLET BY MOUTH IN THE MORNING 90 Tablet 3 08/11/2024 Active HYDROcodone-Acetaminophen 7.5-325 MG Oral TabletIndications:Rheumat oid arthritis involving multiple sites with positive rheumatoid factor (HCC),Sacroiliitis (HCC) Take 1 Tablet by mouth 3 times a day as needed for Pain, Severe. 90 Tablet 08/24/2024 Active Meloxicam 15 MG Oral Tablet (Mobic) TAKE 1 TABLET BY MOUTH EVERY MORNING 90 Tablet 3 08/30/2024 Active Leflunomide 10 MG Oral Tablet (Arava)Indications:Rheuma toid arthritis involving multiple sites with positive rheumatoid factor (HCC) TAKE 1 TABLET BY MOUTH IN THE MORNING 90 Tablet 09/06/2024 Active documented as of this encounter (statuses as of 09/07/2024) Active Problems Problem Noted Date Diagnosed Date [...] as of this encounter (statuses as of 09/07/2024) Resolved Problems Problem Noted Date Diagnosed Date Resolved Date History of 2019 novel reynoso virus disease (COVID-19) 11/27/2021 12/09/2022 Abdominal pain, right upper quadrant 12/05/2017 12/09/2022 RA (rheumatoid arthritis) 12/23/2012 Acute URI 08/27/2008 03/23/2009 Overview: Resolved per Benign Acute Dxs Protocol Acute sinusitis 08/27/2008 03/23/2009 Overview: Resolved per Benign Acute Dxs Protocol Cough 08/27/2008 11/13/2017 ADVANCE DIRECTIVE INFORMATION 08/13/2005 12/09/2022 Overview: No, Advance Directive brochure given to patient. #[id number]\\[id number] 01/24/2004 Overview: Renamed Per Clinical Trials Billing Project. Pt is a participant in the [employer] (Consortium of Rheumatology Researchers of [place]) national data collection study. For further information please call Dr Jesus Izaguirre or Jazmín Samuels, RN, CCRC at [phone] [facility] RESEARCH OTHER*[id number] 01/24/2004 05/07/2010 Overview: Renamed Per Clinical Trials Billing Project. Pt is a participant in the [employer] (Consortium of Rheumatology Researchers of [place]) national data collection study. For further information please call Dr Jesus Izaguirre or Jazmín Samuels RN, CCRC at [phone] Arthritis, rheumatoid 2015 documented as of this encounter (statuses as of 09/07/2024) Immunizations Name Administration Dates Next Due COVID-19 mRNA, LNP-s, No Pre serve, 2-Dose Series (Moderna) 10/05/2021,02/09/2021,01/12/2021 COVID-19, MRNA-LNP, 23-24, P F, 30 MCG/0.3 mL, 12 YRS AND ABOVE, IM (PFIZER-Comirnaty) 07/30/2023 COVID-19, MRNA-LNP, 23-24, P F, 50 MCG/0.5 mL, 12 YRS AND ABOVE, IM (MODERNA-Spikevax) 08/31/2024 COVID-19, mRNA, LNP-s, PF, B ooster, 100mcg/0.5mg (Moderna) 06/05/2022 H1N1 2009 Influenza, IM 11/21/2009 MMR - Measles/Mumps/Rubella Vaccine 05/05/2019 Pneumococcal Conjugate Vacc, 13 Valent (Prevnar) 09/02/2017 Pneumococcal Conjugate Vacci ne, 20-valent ([id number]) 12/09/2022 Pneumococcal Polysaccharide PPV23 (Pneumovax) 11/18/2011,08/19/2006 Season [...] Date Smoking Tobacco: Never Smokeless Tobacco: Never Tobacco Cessation:Counseling Given: Not Answered Alcohol Use Standard Drinks/Week Comments Yes 0 [...] years and over) Not on file 04/27/2024 Sex and Gender Information Value Date Recorded Sex Assigned at Female 08/18/2023 11:35 AM EDT Gender Identity Female 08/18/2023 11:35 AM EDT Sexual Orientation Straight 08/18/2023 11 :35 AM EDT Job Start Date Occupation Industry Not on file Not on file Not on file documented as of this encounter Last Filed Vital Signs Vital Sign Reading Time Taken Comments Blood Pressure - - Pulse - - Temperature 36.6 C (97.8 F) 09/07/2024 8:59 AM ED T Respiratory Rate - - Oxygen Saturation - - Inhaled Oxygen Concentration - - Weight 59.4 kg (131 lb) 09/07/2024 8:59 AM EDT Height - - Body Mass Index 23.96 10/20/2023 2:15 PM EST documented in this encounter Functional Status Functional Status Response Date of Assess ment Are you deaf or do you have serious difficulty h earing? No 04/23/2021 Are you blind or do you have serious difficulty seeing, even when wearing glasses? No 04/23/2021 Do you have serious difficul ty walking or climbing stairs? (5 years old or older) Yes 04/24/2021 Do you have difficulty dress ing or bathing? (5 years old or older) No 04/23/2021 Because of a physical, menta l, or emotional condition, do you have difficulty doing errands alone such as visiting a doctor s office or shopping? (15 years old or older) Yes 04/23/20 21 Cognitive Status Response Date of Assessm ent Because of a physical, menta l, or emotional condition, do you have serious difficulty concentrating, remembering, or making decisions? (5 years old or older) No 04/23/2021 documented as of this encounter Progress Notes * Anil Hansen MD - 09/07/2024 9:01 AM EDT Images from the original note were not included. Assessment and Plan Rheumatoid arthritis involving multiple sites with positive rheumatoid factor (HCC) Encounter for long-term (current) use of medications Spinal stenosis of lumbar region with neurogenic claudication Her rheumatoid arthritis is doing well with no disease activity. Will continue with labs every 6 months. Remains on leflunomide. Return to clinic 1 year. Rheumatology Synopsis: RPICC RA SYNOPSIS Date of RA Diagnosis: [birth year] (08/19/2023 3:00 PM) Current Treatment: LEF (08/19/2023 3:00 PM) Previous Treatment: MTX (08/19/2023 3:00 PM) 2009 Classification Criteria: Y (08/19/2023 3:00 PM) Seropositive or seronegative: Seropositive (08/19/2023 3:00 PM) RF and/or CCP: RF+ (08/19/2023 3:00 PM) Disease activity: Controlled Patient History History of Present Illness HPI:69 year old female presented to rheumatology clinic for Rheum Follow Up (Recheck RA) She is more dealing with her lumbar back disease. She had a recent ablation about 2 weeks ago but still having low back pain and right leg pain. She gets sciatica down the right leg. She also can getmuscle spasms in the quad and hamstrings. She has already had 2 previous back surgeries. Trying to avoid another surgery. Her RA itself is doing well. Remains on leflunomide. Had labs in July that were normal. ROS: Review of Systems was asked and the following other significant symptoms are present: Low back pain/sciatica Subjective Patient's past history, medications, and allergies were reviewed. Objective Physical Exam Temp 36.6 C (97.8 F) (Infrared ) | Wt 59.4 kg (131 lb) | LMP 05/14/2012 | BMI 23.96 kg/m | BSA 1.61 m Constitutional: no acute distress HEENT: normal: normocephalic, atraumatic; no masses, tenderness, or adenopathy Eyes: PERRLA, sclera and conjunctiva normal Neck: supple, no adenopathy CV: normal rate and rhythm, no murmur, gallops or rub Chest: normal respiratory effort, lungs clear to auscultation and percussion Abdomen: normal: soft, bowel sounds normal, no masses, tenderness or organomegaly Musculoskeletal: No synovitis, dactylitis or tenderness MSK/Joint exam (Homunculus) MSK Exam findings: Homunculus exam Studies: Labs and Imaging studies reviewed with pertinent findings noted below: Disease Treatment Response CDAI Scoring Patient Global: Provider Global: Tender (HEDRICK-28): 0 / 28 Swollen (HEDRICK-28): 0 / 28 CDAI: 2 CDAI (Clinical Disease Activity Index) [facility] Outcomes measures: Serial CDAI: Synopsis SmartLink 09/07/2024 09:00 08/19/2023 15:20 CDAI CDAI 2 7 - Serial CDAI: - Yes - Remission: - Yes - low disease activity Currently on csDMARD: Yes Currently on Biologic DMARD: No Vaccination status: COVID: Vaccine Series Complete Influenza:Vaccine complete for this season Pneumococcal:Vaccine Series complete Zoster:Vaccine Series Complete Last Hepatitis and TB testing: Hepatitis B: Not Tested, results not available Hepatitis C: Not Tested, results not available PPD or TB-Gold: Not Tested, results not available No results found for: "HBSAG", "HEPB", "HCVAB" No results found for: "TB GOLD AG NIL", "TB GOLD MITOGEN NIL", "PPD INDURATION", "PPD-OUTSIDE LAB","QUANTIFERON GOLD TB", "QUANTIFERON-TB PLUS", "QUANTIFERON-TB PLUS,1T", "QUANTIFERON-TB PLUS,4T" Wrap-Up documented in this encounter Nursing Notes * Rebeca Herrera LPN - 09/07/2024 8:58 AM EDT Chief Complaint Patient presents with Rheum Follow Up Recheck RA documented in this encounter Plan of Treatment Upcoming Encounters Date Type Department Care Team (Late st Contact Info) Description 11/12/2024 10:15 AM EST Office Visit Dermatology [facility] [address] [facility] [place] [address] Jesus Gleason MD [address] [place] [id number] 02/25/2025 1:00 PM EDT Office Visit Family Practice [facility] [address] [facility] [place] [address] Lalit Perera, [address] [place] [address] 09/07/2025 10:00 AM EDT Office Visit Rheumatology [place] [address] [place] [address] Anil Hansen MD [address] [place] [address] Scheduled Orders Name Type Priority Associated Diagnoses Orde r Schedule CBC WITH WBC DIFFERENTIAL Lab Routine Rheumatoid arthritis involving multiple sites with positive rheumatoid factor (HCC) Encounter for long-term (current) use of medications Every 6 Months for 2 Occurrences starting 09/07/2024 until 09/07/2025 COMPREHENSIVE METABOLIC PANEL Lab Routine Rheumatoid arthritis involving multiple sites with positive rheumatoid factor (HCC) Encounter for long-term (current) use of medications Every 6 Months for 2 Occurrences starting 09/07/2024 until 09/07/2025 Scheduled Procedures Name Priority Associated Diagnoses Date/Ti [...] Additional history exists Pap Smear Discontinued 03/08/2024, 0 05/2022, 04/16/2019, Additional history exists Influenza Vaccine [...] this encounter Medical Devices Implanted Type Area Front Desk Clerk Device Identifier Shelf Expiration Date Model / Serial / Lot Dbx 10cc [id number] - [id number] - [id number] Implanted:Qt y: 1 on 04/23/2021 by Dewey Bennett MD at [facility] Tissue - Human MUSCULOSKELETAL TRANSPLANT FND [id number] 08/17/2022 [id number] / [id number] / LOT NA Pivox Oblique Lateral Spinal System Interbody Implanted:Qt y: 1 on 04/23/2021 by Dewey Bennett MD at OR [facility] N/A: Spine Lumbar Medtronic 06/10/2026 [id number] / / [id number] Description:Mat'l: Peek/lui nium alloy Vitoss Bimodal Foam Pack 2.5cc - [id number] - [id number] Implanted:Qt y: 1 on 04/23/2021 by Dewey Bennett MD at OR [facility] NEFTALY : SPINE 06/06/2022 [id number] / [id number] / [id number] Graft Bone Dbm Matrix 2.5x5cm - [id number] - [id number] Implanted:Qt y: 1 on 04/23/2021 by Dewey Bennett MD at OR [facility] [employer] [id number] 11/17/2023 T42 210 / [id number] / LOT NA Vitoss Bimodal Foam Pack 2.5cc - [id number] - [id number] Implanted:Qt y: 1 on 04/23/2021 by Dewey Bennett MD at OR [facility] NEFTALY : SPINE [id number] 01/07/2022 2102- 1902 / [id number] / [id number] Screw Ped 6.5x45mm 124.465 - [id number] Implanted:Qt y: 2 on 04/23/2021 by Dewey Bennett MD at OR [facility] N/A: Spine Lumbar [employer] 124.465 / / 124.655 Globus Paramjit 55mm Implanted:Qt y: 1 on 04/23/2021 by Dewey Bennett MD at OR [facility] N/A: Spine Lumbar [employer] 124.655 / / 124.660 Globus Paramjit 60mm Implanted:Qt y: 1 on 04/23/2021 by Dewey Bennett MD at OR [facility] N/A: Spine Lumbar [employer] 124.660 / / documented as of this encounter Visit Diagnoses Diagnosis Rheumatoid arthritis involving multiple sites with positive rheumatoid factor (HCC)- Primary Encounter for long-term (current) use of medications Encounter for long-term (current) use of other medications Spinal stenosis of lumbar region with neurogenic [...] and were consensually agreed upon. Care Teams Extruding Press Operator Relationship Specialty Start Date End Date Lalit Perera DO [address] [place] [address] PCP - General Family Medicine 10/07/18 documented as of this encounter
--- OUTSIDE RECORDS SUMMARY | 2024-10-27 04:40 | External Medical Summary | Summary of Care ---
Author Name Unknown Organization [facility] Address [address] [place] [address] Phone [phone] Care Team Providers Care Brick Machine Operator Name Role Phone Tommy Barillas DO Primary Care Provider [phone] Reason for Visit * Reason Comments eRx-Medication Refill Encounter Details Date Type Department Care Team (Late st Contact Info) Description 08/28/2024 Refill Family Practice [facility] [place] [address] [facility] [place] [address] Tommy Barillas DO 200 [facility] [place] [address] Allergies Active Allergy Reactions Criticality Noted Date Comments Sulfa Antibiotics Edema face/lips/tongue High 2001 documented as of this encounter (statuses as of 08/30/2024) Medications Medication Sig Dispensed Refills Start Date End Date Status Multiple Vitamins-Calcium (ONE-A-DAY WOMENS FORMULA) Tablet Take 1 Tablet by mouth in the morning. Active valACYclovir HCl 500 MG Oral Tablet (Valtrex)Indications:Rec urrent cold sores Take by mouth 1 Tablet in the morning. 90 Tablet 3 07/16/20 22 Active Ventolin HFA 108 (90 Base) MCG/ACT Inhalation Aerosol Solution Inhale by mouth 2 Puffs every 4 hours as needed for Wheezing. 18 g 3 07/16/20 22 Active Calcium Carbonate 600 MG Oral Tablet (Calcium 600) Take 1 Tablet by mouth in the morning. Active Fluorouracil 5 % External Cream (Efudex) Apply to affected areas twice daily for 3 weeks. For rough areas on face. 40 g 1 11/14/19 24 Active Folic Acid 1 MG Oral TabletIndications:Rheuma toid arthritis involving multiple sites with positive rheumatoid factor (HCC) TAKE 3 TABLETS BY MOUTH IN THE MORNING 270 Tablet 3 02/10/20 24 Active Leflunomide 10 MG Oral Tablet (Arava)Indications:Rheum atoid arthritis involving multiple sites with positive rheumatoid factor (HCC) TAKE 1 TABLET BY MOUTH IN THE MORNING 90 Tablet 1 03/03/20 24 Active Atenolol 50 MG Oral Tablet (Tenormin)Indications:HT N, goal below 140/90 TAKE 1 AND 1/2 TABLETS BY MOUTH IN THE MORNING 135 Tablet 2 02/28/20 24 Active DULoxetine HCl 60 MG Oral Capsule Delayed Release Particles (Cymbalta)Indications:Re active depression,Spinal stenosis of lumbar region with neurogenic claudication Take 1 Capsule by mouth in the morning. Do not cut, crush or chew. 30 Capsule 5 04/14/20 24 Active amLODIPine Besylate 5 MG Oral Tablet (Norvasc)Indications:HTN , goal below 140/90 TAKE 2 TABLETS BY MOUTH BEFORE BEDTIME 180 Tablet 1 07/06/20 24 Active Gabapentin 300 MG Oral Capsule (Neurontin)Indications:S tobi stenosis of lumbar region with neurogenic claudication TAKE 2 CAPSULES BY MOUTH IN THE MORNING AND 2 CAPSULES BY MOUTH BEFORE BEDTIME 360 Capsule 3 07/13/20 24 Active tiZANidine HCl 2 MG Oral Capsule Take 1 Capsule by mouth 3 times a day as needed for Muscle spasms. 135 Capsule 3 07/19/20 24 Active traZODone HCl 50 MG Oral Tablet (Desyrel)Indications:Per sistent insomnia TAKE 2 TABLETS BY MOUTH BEFORE BEDTIME 180 Tablet 1 08/10/20 24 Active Atorvastatin Calcium 40 MG Oral Tablet (Lipitor)Indications:Pur e hypercholesterolemia TAKE 1 TABLET BY MOUTH IN THE MORNING 90 Tablet 3 08/11/20 24 Active HYDROcodone-Acetaminophe n 7.5-325 MG Oral TabletIndications:Rheuma toid arthritis involving multiple sites with positive rheumatoid factor (HCC),Sacroiliitis (HCC) Take 1 Tablet by mouth 3 times a day as needed for Pain, Severe. 90 Tablet 08/24/20 24 Active Meloxicam 15 MG Oral Tablet (Mobic) TAKE 1 TABLET BY MOUTH EVERY MORNING 90 Tablet 3 08/30/20 24 Active Meloxicam 15 MG Oral Tablet (Mobic) TAKE 1 TABLET BY MOUTH EVERY MORNING 90 Tablet 2 11/11/19 24 024 Discontinued documented as of this encounter (statuses as of 08/30/2024) Active Problems Problem Noted Date Diagnosed Date [...] as of this encounter (statuses as of 08/30/2024) Resolved Problems Problem Noted Date Diagnosed Date [...] No, Advance Directive brochure given to patient. #[id number]\JASON\THOR 01/24/2004 Overview: Renamed Per Clinical Trials Billing Project. Pt is a participant in the [employer] (Consortium of Rheumatology Researchers of [place]) national data collection study. For further information please call Dr Jesus Izaguirre or Jazmín Samuels, RN, CCRC at [phone] [facility] RESEARCH OTHER*[id number] 01/24/2004 05/07/2010 Overview: Renamed Per Clinical Trials Billing Project. Pt is a participant in the [employer] (Consortium of Rheumatology Researchers of [place]) national data collection study. For further information please call Dr Jesus Izaguirre or Jazmín Samuels RN, CCRC at [phone] Arthritis, rheumatoid 2015 documented as of this encounter (statuses as of 08/30/2024) Immunizations Name Administration Dates Next Due COVID-19 mRNA, LNP-s, No Pre serve, 2-Dose Series (Moderna) 10/05/2021,02/09/2021,01/12/2021 COVID-19, MRNA-LNP, 23-24, P F, 30 MCG/0.3 mL, 12 YRS AND ABOVE, IM (PFIZER-Comirnaty) 07/30/2023 COVID-19, mRNA, LNP-s, PF, B ooster, 100mcg/0.5mg (Moderna) 06/05/2022 H1N1 2009 Influenza, IM 11/21/2009 MMR - Measles/Mumps/Rubella Vaccine 05/05/2019 Pneumococcal Conjugate Vacc, 13 Valent (Prevnar) 09/02/2017 Pneumococcal Conjugate Vacci ne, 20-valent ([id number]) 12/09/2022 Pneumococcal Polysaccharide PPV23 (Pneumovax) 11/18/2011,08/19/2006 Season [...] documented as of this encounter Functional Status Functional Status Response [...] (15 years old or older) Yes 04/23/20 Cognitive Status Response Date of Assessm ent Because of a physical, menta l, or emotional condition, do you have serious difficulty concentrating, remembering, or making decisions? (5 years old or older) No 04/23/2021 documented as of this encounter Miscellaneous Notes * Telephone Encounter - Mandy Streeter RPh - 08/30/2024 11:04 AM EDT Signed Prescriptions: Disp Refills Meloxicam 15 MG Oral Tablet (Mobic) 90 Tab*3 Sig: TAKE 1 TABLET BY MOUTH EVERY MORNINGAuthorizing Provider: TOMMY BARILLAS User: MANDY STREETER---- documented in this encounter Plan of Treatment Upcoming Encounters Date Type Department Care Team (Late st Contact Info) Description 11/12/2024 10:15 AM EST Office Visit Dermatology [facility] [address] [place] [address] [address] Jesus Gleason MD [address] [place] [address] 02/25/2025 1:00 PM EDT Office Visit Family Practice [facility] [place] [address] [place] [address] [address] Tommy Barillas, DO [address] [place] [address] [address] Scheduled Procedures Name Priority Associated Diagnoses Date/Ti me COLONOSCOPY FLEXIBLE PROXIMA L DIAGNOSTIC Recall Encounter for screening colonoscopy Health Maintenance Due Date Last Done Comments Hepatitis C Screening 1975 Cologuard 2002 Fecal Occult Blood Test 2002 Sigmoidoscopy 2002 DTap/Tdap Vaccines (2 - Td or Tdap) 01/19/2023 01/19/2013 Adult Wellness Visit 2023 COVID-19 Vaccine ( season) 2024 07/30/2023, 06/05/2022, 10/05/2021, Additional history exists Depression Monitoring 10/07/2024 10/07/2023 Albumin/Creatinine Ratio 12/04/2024 [...] Completed 07/30/2024, 08/05/2023, 07/30/2023, Additional history exists HPV (Gardasil) Vaccine Aged Out No lo nger eligible based on patient's age to complete this topic Hepatitis B Vaccine Aged Out No longe r eligible based on patient's age to complete this topic MENINGOCOCCAL (MENACTRA/MENVEO) Aged Out No longer eligible based on patient's age to complete this topic documented as of this encounter Medical Devices Implanted Type Area Fresh Foods Cake Decorator Device Identifier Shelf Expiration Date Model / Serial / Lot Dbx 10cc [id number] - [id number] - [id number] Implanted:Qt y: 1 on 04/23/2021 by Dewey Bennett MD at OR [facility] Tissue - Human MUSCULOSKELETAL TRANSPLANT FND [id number] 08/17/2022 [id number] / [id number] / LOT NA Pivox Oblique Lateral Spinal System Interbody Implanted:Qt y: 1 on 04/23/2021 by Dewey Bennett MD at OR [facility] N/A: Spine Lumbar Medtronic 06/10/2026 [id number] / / [id number] Description:Mat'l: Peek/lui nium alloy Vitoss Bimodal Foam Pack 2.5cc - [id number] - [id number] Implanted:Qt y: 1 on 04/23/2021 by Dewey Bennett MD at OR [facility] NEFTALY : SPINE 06/06/2022 / [id number] / [id number] Graft Bone Dbm Matrix 2.5x5cm - [id number] - [id number] Implanted:Qt y: 1 on 04/23/2021 by Dewey Bennett MD at OR [facility] [employer] [id number] 11/17/2023 T42 210 / [id number] / LOT NA Vitoss Bimodal Foam Pack 2.5cc - [id number] - [id number] Implanted:Qt y: 1 on 04/23/2021 by Dewey Bennett MD at OR [facility] NEFTALY : SPINE [id number] 01/07/20222101- 190 / [id number] / [id number] Screw Ped 6.5x45mm 124.465 - [id number] Implanted:Qt y: 2 on 04/23/2021 by Dewey Bennett MD at OR [facility] N/A: Spine Lumbar [employer] 124.465 / / 124.655 Globus Paramjit 55mm Implanted:Qt y: 1 on 04/23/2021 by Dewey Bennett MD at OR [facility] N/A: Spine Lumbar [employer] 124.655 / / 124.660 Globus Paramjit 60mm Implanted:Qt y: 1 on 04/23/2021 by Dewey Bennett MD at OR [facility] N/A: Spine Lumbar [employer] 124.660 / / documented as of this encounter Advance Directives * Full Code (Latest Code Status on File) Date Activated Date Inactivated Comments 04/23/2021 3:24 PM 04/26/2021 2:34 PM This order r eflects the patients wishes and were consensually agreed upon. * Full Code Date Activated Date Inactivated Comments 04/23/2021 7:23 AM 04/23/2021 3:24 PM This order r eflects the patients wishes and were consensually agreed upon. Care Teams Brick Machine Operator Relationship Specialty Start Date End Date Tommy Barillas DO [address] [place] [address] PCP - General Family Medicine 10/07/18 documented as of this encounter
--- OUTSIDE RECORDS SUMMARY | 2024-10-27 04:40 | External Medical Summary | Summary of Care ---
Author Name Unknown Organization [facility] Address [address] [place] [address] Phone [phone] Care Team Providers Care Health Safety Engineer Name Role Phone Tommy Barillas DO Primary Care Provider [phone] Reason for Visit * Reason Onset Date Comments Medication Refill 08/22/2024 Encounter Details Date Type Department Care Team (Late st Contact Info) Description 08/22/2024 Refill Family Practice [facility] [place] 200 [facility] [place] [address] Tommy Barillas DO 200 [facility] [place] [address] Rheumatoid arthritis involving multiple sites with positive rheumatoid factor (HCC); Sacroiliitis (HCC) Allergies Active Allergy Reactions Criticality Noted Date Comments Sulfa Antibiotics Edema face/lips/tongue High 2001 documented as of this encounter (statuses as of 08/24/2024) Medications Medication Sig Dispensed Refills Start Date End Date Status Multiple Vitamins-Calcium (ONE-A-DAY WOMENS FORMULA) Tablet Take 1 Tablet by mouth in the morning. Active valACYclovir HCl 500 MG Oral Tablet (Valtrex)Indications:Recu rrent cold sores Take by mouth 1 Tablet in the morning. 90 Tablet 3 2 Active Ventolin HFA 108 (90 Base) MCG/ACT Inhalation Aerosol Solution Inhale by mouth 2 Puffs every 4 hours as needed for Wheezing. 18 g 3 2 Active Calcium Carbonate 600 MG Oral Tablet (Calcium 600) Take 1 Tablet by mouth in the morning. Active Meloxicam 15 MG Oral Tablet (Mobic) TAKE 1 TABLET BY MOUTH EVERY MORNING 90 Tablet 2 4 Active Fluorouracil 5 % External Cream (Efudex) Apply to affected areas twice daily for 3 weeks. For rough areas on face. 40 g 1 4 Active Folic Acid 1 MG Oral TabletIndications:Rheumat oid arthritis involving multiple sites with positive rheumatoid factor (HCC) TAKE 3 TABLETS BY MOUTH IN THE MORNING 270 Tablet 3 4 Active Leflunomide 10 MG Oral Tablet (Arava)Indications:Rheuma toid arthritis involving multiple sites with positive rheumatoid factor (HCC) TAKE 1 TABLET BY MOUTH IN THE MORNING 90 Tablet 1 4 Active Atenolol 50 MG Oral Tablet (Tenormin)Indications:HTN , goal below 140/90 TAKE 1 AND 1/2 TABLETS BY MOUTH IN THE MORNING 135 Tablet 2 4 Active DULoxetine HCl 60 MG Oral Capsule Delayed Release Particles (Cymbalta)Indications:Ama ctive depression,Spinal stenosis of lumbar region with neurogenic claudication Take 1 Capsule by mouth in the morning. Do not cut, crush or chew. 30 Capsule 5 4 Active amLODIPine Besylate 5 MG Oral Tablet (Norvasc)Indications:HTN, goal below 140/90 TAKE 2 TABLETS BY MOUTH BEFORE BEDTIME 180 Tablet 1 4 Active Gabapentin 300 MG Oral Capsule (Neurontin)Indications:Sp inal stenosis of lumbar region with neurogenic claudication TAKE 2 CAPSULES BY MOUTH IN THE MORNING AND 2 CAPSULES BY MOUTH BEFORE BEDTIME 360 Capsule 3 4 Active tiZANidine HCl 2 MG Oral Capsule Take 1 Capsule by mouth 3 times a day as needed for Muscle spasms. 135 Capsule 3 4 Active traZODone HCl 50 MG Oral Tablet (Desyrel)Indications:Pers istent insomnia TAKE 2 TABLETS BY MOUTH BEFORE BEDTIME 180 Tablet 1 4 Active Atorvastatin Calcium 40 MG Oral Tablet (Lipitor)Indications:Pure hypercholesterolemia TAKE 1 TABLET BY MOUTH IN THE MORNING 90 Tablet 3 4 Active HYDROcodone-Acetaminophen 7.5-325 MG Oral TabletIndications:Rheumat oid arthritis involving multiple sites with positive rheumatoid factor (HCC),Sacroiliitis (HCC) Take 1 Tablet by mouth 3 times a day as needed for Pain, Severe. 90 Tablet Active HYDROcodone-Acetaminophen 7.5-325 MG Oral TabletIndications:Rheumat oid arthritis involving multiple sites with positive rheumatoid factor (HCC),Sacroiliitis (HCC) Take 1 Tablet by mouth 3 times a day as needed for Pain, Severe. 90 Tablet 4 08/22/20 24 Discontinu ed(Refill) documented as of this encounter (statuses as of 08/24/2024) Active Problems Problem Noted Date Diagnosed Date [...] as of this encounter (statuses as of 08/24/2024) Resolved Problems Problem Noted Date Diagnosed Date [...] Directive brochure given to patient. #OOR-192\[facility]\ENEWMAN 01/24/2004 Overview: Renamed Per Clinical Trials Billing Project. Pt is a participant in the [facility] (Consortium of Rheumatology Researchers of [facility]) national data collection study. For further information please call Dr Jesus Izaguirre or Jazmín Samuels, RN, CCRC at [phone] [facility] RESEARCH OTHER*[id number] 01/24/2004 05/07/2010 Overview: Renamed Per Clinical Trials Billing Project. Pt is a participant in the [facility] (Consortium of Rheumatology Researchers of [facility]) national data collection study. For further information please call Dr Jesus Izaguirre or Jazmín Samuels, RN, CCRC at [phone] Arthritis, rheumatoid 2015 documented as of this encounter (statuses as of 08/24/2024) Immunizations Name Administration Dates Next Due COVID-19 mRNA, LNP-s, No Pre serve, 2-Dose Series (Moderna) 10/05/2021,02/09/2021,01/12/2021 COVID-19, MRNA-LNP, 23-24, P F, 30 MCG/0.3 mL, 12 YRS AND ABOVE, IM (PFIZER-Comirnaty) 07/30/2023 COVID-19, mRNA, LNP-s, PF, B ooster, 100mcg/0.5mg (Moderna) 06/05/2022 H1N1 2009 Influenza, IM 11/21/2009 MMR - Measles/Mumps/Rubella Vaccine 05/05/2019 Pneumococcal Conjugate Vacc, 13 Valent (Prevnar) 09/02/2017 Pneumococcal Conjugate Vacci ne, 20-valent ([id number]) 12/09/2022 Pneumococcal Polysaccharide PPV23 (Pneumovax) 11/18/2011,08/19/2006 Season [...] encounter Miscellaneous Notes * Telephone Encounter - Tommy Barillas DO - 08/24/2024 5:08 PM EDTSigned Prescriptions: Disp Refills HYDROcodone-Acetaminophen 7.5-325 MG Oral *90 Tab*0 Sig: Take 1 Tablet by mouth 3 times a day as needed for Pain, Severe. Authorizing Provider: TOMMY BARILLAS * Telephone Encounter - Mandy Nuñez [facility] - 08/24/2024 9:50 AM EDT Pending Prescriptions: Disp Refills HYDROcodone-Acetaminophen 7.5-325 MG Oral *90 Tab*0 Sig: Take 1 Tablet by mouth 3 times a day as needed for Pain, Severe. * Telephone Encounter - Mandy Nuñez RPh - 08/24/2024 9:49 AM EDT I have reviewed the patients controlled substance dispensing history in the Prescription Drug Monitoring Program in compliance with the [facility] regulations before prescribing a controlled substance. PDMP checked on 08/24/2024. Pending Prescriptions: Disp Refills HYDROcodone-Acetaminophen 7.5-325 MG Oral*90 Tab*0 Sig: Take 1 Tablet by mouth 3 times a day as needed for Pain, Severe. Last Visit: 07/30/2024 (in office), 10/17/2020 (telemedicine) Next Visit: 02/25/2025 Date medication was last filled: 07/26/24 Date medication is due for refill: 08/23/24 Pharmacy: [id number] Is this request for a controlled substance? Yes and Urine Drug Screen Not completed Toxicology results: No results found. However, due to the size of the patient record, not all encounters were searched.Please check Results Review for a complete set of results. Please approve if appropriate. Thanks, Mandy Nuñez [facility] Clinical Pharmacist [facility] ([facility]) [phone] documented in this encounter Plan of Treatment Upcoming Encounters Date Type Department Care Team (Late st Contact Info) Description 11/12/2024 10:15 AM EST Office Visit D[facility]atology [facility] [address] [place] [address] [address] Jesus Gleason MD [address] [place] [address] 02/25/2025 1:00 PM EDT Office Visit Family Practice [facility] [address] [place] [address] [address] Tommy Barillas, DO 200 [facility] [place] [address] Scheduled Procedures Name Priority Associated Diagnoses Date/Ti [...] this encounter Medical Devices Implanted Type Area Machine Records Units Supervisor Device Identifier Shelf Expiration Date Model / Serial / Lot Dbx 10cc [id number] - [id number] - [id number] Implanted:Qt y: 1 on 04/23/2021 by Dewey Bennett MD at OR [facility] Tissue - Human MUSCULOSKELETAL TRANSPLANT FND [id number] 08/17/2022 [id number] / [id number] / LOT NA Pivox Oblique Lateral Spinal System Interbody Implanted:Qt y: 1 on 04/23/2021 by Dewey Bennett MD at OR [facility] N/A: Spine Lumbar Medtronic 06/10/2026 [id number] / / [id number] Description:Mat'l: Peek/lui nium alloy Vitoss Bimodal Foam Pack 2.5cc - [id number] - [id number] Implanted:Qt y: 1 on 04/23/2021 by Dewey Bennett MD at OR [facility] NEFTALY : SPINE 06/06/2022 / [id number] / [id number] Graft Bone Dbm Matrix 2.5x5cm - [id number] - [id number] Implanted:Qt y: 1 on 04/23/2021 by Dewey Bennett MD at OR [facility] [employer] [id number] 11/17/2023 T42 210 / [id number] / LOT NA Vitoss Bimodal Foam Pack 2.5cc - [id number] - [id number] Implanted:Qt y: 1 on 04/23/2021 by Dewey Bennett MD at OR [facility] NEFTALY : SPINE [id number] 01/07/20221901 / [id number] / [id number] Screw Ped 6.5x45mm 124.465 - [id number] Implanted:Qt y: 2 on 04/23/2021 by Dewey Bennett MD at OR [facility] N/A: Spine Lumbar [employer] 124.465 / / 124.655 Globus Paramjit 55mm Implanted:Qt y: 1 on 04/23/2021 by Dewey Bennett MD at OR [facility] N/A: Spine Lumbar [employer] 124.655 / / 124.660 Globus Paramjit 60mm Implanted:Qt y: 1 on 04/23/2021 by Dewey Bennett MD at OR [facility] N/A: Spine Lumbar [employer] 124.660 / / documented as of this encounter Visit Diagnoses Diagnosis Rheumatoid arthritis involving multiple sites with positive rheumatoid factor (HCC) Sacroiliitis (HCC) Sacroiliitis, not elsewhere classified documented in this encounter Advance Directives * [...] and were consensually agreed upon. Care Teams Health Safety Engineer Relationship Specialty Start Date End Date Tommy Barillas DO [address] [place] [address] PCP - General Family Medicine 10/07/18 documented as of this encounter
--- OUTSIDE RECORDS SUMMARY | 2024-10-27 04:40 | External Medical Summary | Summary of Care ---
Author Name Unknown Organization [facility] Address [address] [place] [address] Phone [phone] Care Team Providers Care Carburetor Mechanic Name Role Phone Lalit Perera DO Primary Care Provider [phone] Reason for Visit * Reason Onset Date Comments Medication Refill 09/27/2024 Encounter Details Date Type Department Care Team (Late st Contact Info) Description 09/27/2024 Refill Family Practice [facility] [place] [address] [facility] [place] [address] Lalit Perera DO [address] [facility] [place] [address] Rheumatoid arthritis involving multiple sites with positive rheumatoid factor (HCC); Sacroiliitis (HCC) Allergies Active Allergy Reactions Criticality Noted Date Comments Sulfa Antibiotics Edema face/lips/tongue High 2001 documented as of this encounter (statuses as of 09/28/2024) Medications Multiple Vitamins-Calcium (ONE-A-DAY WOMENS FORMULA) Tablet [...] MORNING 270 Tablet 3 02/10/20 24 Active Atenolol 50 MG Oral Tablet [...] MORNING 90 Tablet 3 08/11/20 24 Active Meloxicam 15 MG Oral Tablet (Mobic) TAKE 1 TABLET BY MOUTH EVERY MORNING 90 Tablet 3 08/30/20 24 Active Leflunomide 10 MG Oral Tablet (Arava)Indications:Rheum atoid arthritis involving multiple sites with positive rheumatoid factor (HCC) TAKE 1 TABLET BY MOUTH IN THE MORNING 90 Tablet 09/06/20 24 Active HYDROcodone-Acetaminophe n 7.5-325 MG Oral TabletIndications:Rheuma toid arthritis involving multiple sites with positive rheumatoid factor (HCC),Sacroiliitis (HCC) Take 1 Tablet by mouth 3 times a day as needed for Pain, Severe. 90 Tablet 09/27/20 24 Active documented as of this encounter (statuses as of 09/28/2024) Active Problems Problem Noted Date Diagnosed Date [...] as of this encounter (statuses as of 09/28/2024) Resolved Problems Problem Noted Date Diagnosed Date [...] Directive brochure given to patient. #[id number]\JASON\THOR 01/24/2004 Overview (02/23/2010): Renamed Per Clinical Trials Billing Project. Pt is a participant in the [employer] (Consortium of Rheumatology Researchers of [place]) national data collection study. For further information please call Dr Jesus Izaguirre or Jazmín Samules, RN, CCRC at [phone] [facility] RESEARCH OTHER*[id number] 01/24/2004 05/07/2010 Overview (02/23/2010): Renamed Per Clinical Trials Billing Project. Pt is a participant in the [employer] (Consortium of Rheumatology Researchers of [place]) national data collection study. For further information please call Dr Jesus Izaguirre or Jazmín Samuels, RN, CCRC at [phone] Arthritis, rheumatoid 2015 documented as of this encounter (statuses as of 09/28/2024) Immunizations Name Administration Dates Next Due COVID-19 [...] (Prevnar) 09/02/2017 Pneumococcal Conjugate Vacci ne, 20-valent ([id number]) 12/09/2022 Pneumococcal Polysaccharide PPV23 (Pneumovax) 11/18/2011,08/19/2006 Season [...] Author No 04/23/2021 4:23 PM EDT Cristofer Sánchez, RN * Are you blind or do [...] Cristofer Sánchez RN documented in this encounter Plan of Treatment Upcoming Encounters Date Type Department Care Team (Late st Contact Info) Description 11/12/2024 10:15 AM EST Office Visit Dermatology [facility] [address] [place] [address] Jesus Gleason MD [address] [place] [address] 02/25/2025 1:00 PM EDT Office Visit Family Practice [facility] [address] [place] [address] Lalit Perera, DO [address] [place] [address] 09/07/2025 10:00 AM EDT Office Visit Rheumatology [facility] [address] [place] [address] Anil Hansen MD [address] [place] [address] Scheduled Procedures Name Priority Associated Diagnoses Date/Ti [...] this encounter Medical Devices Implanted Type Area Field Inspector Device Identifier Shelf Expiration Date Model / Serial / Lot Dbx 10 [id number] - [id number] - [id number] Implanted:Qt y: 1 on 04/23/2021 by Dewey Bennett MD at OR [facility] Tissue - Human MUSCULOSKELETAL TRANSPLANT FND [id number] 08/17/2022 [id number] / [id number] / LOT NA Pivox Oblique Lateral Spinal System Interbody Implanted:Qt y: 1 on 04/23/2021 by Dewey Bennett MD at OR [facility] N/A: Spine Lumbar Medtronic 06/10/2026 [id number] / / [id number] Description:Mat'l: Peek/lui nium alloy Vitoss Bimodal Foam Pack 2.5cc - [id number] - [id number] Implanted:Qt y: 1 on 04/23/2021 by Dewey Bennett MD at OR [facility] NEFTALY : SPINE 06/06/2022 / [id number] / [id number] Graft Bone Dbm Matrix 2.5x5cm - [id number] - [id number] Implanted:Qt y: 1 on 04/23/2021 by Dewey Bennett MD at OR [facility] [employer] [id number] 11/17/2023 T42 210 / [id number] / LOT NA Vitoss Bimodal Foam Pack 2.5cc - [id number] - [id number] Implanted:Qt y: 1 on 04/23/2021 by Dewey Bennett MD at OR [facility] NEFTALY : SPINE [id number] 01/07/2022 2102- 190 / [id number] / [id number] Screw Ped 6.5x45mm 124.465 - [id number] Implanted:Qt y: 2 on 04/23/2021 by Dewey Bennett MD at OR [facility] N/A: Spine Lumbar [employer] 124.465 / / 124.655 Globus Paramjit 55mm Implanted:Qt y: 1 on 04/23/2021 by Dewey Bennett MD at OR [facility] N/A: Spine Lumbar [employer] 124.655 / / 124.660 Globus Paramjit 60mm Implanted:Qt y: 1 on 04/23/2021 by Dewey Bennett MD at OR [facility] N/A: Spine Lumbar [employer] 124.660 [...] and were consensually agreed upon. Care Teams Carburetor Mechanic Relationship Specialty Start Date End Date Lalit Perera DO [address] [place] [address] PCP - General Family Medicine 10/07/18 documented as of this encounter
--- OUTSIDE RECORDS SUMMARY | 2024-10-27 04:40 | External Medical Summary | Summary of Care ---
Author Name Unknown Organization [facility] Address [address] [place] [address] Phone [phone] Care Team Providers Care Sales And Leasing Agent Name Role Phone Lalit Perera DO Primary Care Provider [phone] Reason for Visit * Reason Onset Date Comments Medication Refill 08/09/2024 Encounter Details Date Type Department Care Team (Late st Contact Info) Description 08/09/2024 Refill Family Practice [facility] [place] [address] [facility] [place] [address] Lalit Perera DO [address] [facility] [place] [address] Persistent insomnia Allergies Active Allergy Reactions Criticality Noted Date Comments Sulfa Antibiotics Edema face/lips/tongue High 2001 documented as of this encounter (statuses as of 08/10/2024) Medications Medication Sig Dispensed Refills Start Date [...] for Wheezing. 18 g 3 2 Active Atorvastatin Calcium 40 MG Oral Tablet (Lipitor)Indications:Pure hypercholesterolemia TAKE 1 TABLET BY MOUTH IN THE MORNING 90 Tablet 3 3 Active Calcium Carbonate 600 MG Oral Tablet [...] 60 MG Oral Capsule Delayed Release Particles (Cymbalta)Indications:Ebony ctive depression,Spinal stenosis of lumbar region with [...] Muscle spasms. 135 Capsule 3 4 Active HYDROcodone-Acetaminophen 7.5-325 MG Oral TabletIndications:Rheumat oid arthritis involving multiple sites with positive rheumatoid factor (HCC),Sacroiliitis (HCC) Take 1 Tablet by mouth 3 times a day as needed for Pain, Severe. 90 Tablet 4 Active traZODone HCl 50 MG Oral Tablet (Desyrel)Indications:Pers istent insomnia TAKE 2 TABLETS BY MOUTH BEFORE BEDTIME 180 Tablet 1 4 Active traZODone HCl 50 MG Oral Tablet (Desyrel)Indications:Pers istent insomnia TAKE 2 TABLETS BY MOUTH BEFORE BEDTIME 180 Tablet 1 4 08/09/20 24 Discontinu ed(Refill) documented as of this encounter (statuses as of 08/10/2024) Active Problems Problem Noted Date Diagnosed Date [...] as of this encounter (statuses as of 08/10/2024) Resolved Problems Problem Noted Date Diagnosed Date [...] Izaguirre or Jazmín Samuels, RN, CCRC at [phone] [facility] RESEARCH OTHER*[id number] 01/24/2004 05/07/2010 Overview: Renamed Per Clinical Trials Billing Project. Pt is a participant in the [employer] (Consortium of Rheumatology Researchers of [place]) national data collection study. For further information please call Dr Jesus Izaguirre or Jazmín Samuels, RN, CCRC at [phone] Arthritis, rheumatoid 2015 documented as of this encounter (statuses as of 08/10/2024) Immunizations Name Administration Dates Next Due COVID-19 mRNA, LNP-s, No Pre serve, 2-Dose Series (Moderna) 10/05/2021,02/09/2021,01/12/2021 COVID-19, MRNA-LNP, 23-24, P F, 30 MCG/0.3 mL, 12 YRS AND ABOVE, IM (PFIZER-Comirnaty) 07/30/2023 COVID-19, mRNA, LNP-s, PF, B ooster, 100mcg/0.5mg (Moderna) 06/05/2022 H1N1 2009 Influenza, IM 11/21/2009 MMR - Measles/Mumps/Rubella Vaccine 05/05/2019 Pneumococcal Conjugate Vacc, 13 Valent (Prevnar) 09/02/2017 Pneumococcal Conjugate Vacci ne, 20-valent (Awjsjht57) 12/09/2022 Pneumococcal Polysaccharide PPV23 (Pneumovax) 11/18/2011,08/19/2006 Season [...] No 04/23/2021 documented as of this encounter Plan of Treatment Upcoming Encounters Date Type Department Care Team (Late st Contact Info) Description 08/24/2024 9:40 AM EDT Office Visit Rheumatology [place] [address] [facility] [place] [address] Anil Hansen MD [address] [place] [address] 11/12/2024 10:15 AM EST Office Visit Dermatology [facility] [place] [address] [place] [address] [address] Jesus Gleason MD [address] [place] [address] 02/25/2025 1:00 PM EDT Office Visit Family Practice [facility] [place] [address] [place] [address] Lalit Perera, [address] [place] [address] [address] Scheduled Procedures Name Priority Associated Diagnoses Date/Ti [...] this encounter Medical Devices Implanted Type Area Infection Control Nurse Device Identifier Shelf Expiration Date Model / Serial / Lot Dbx 10cc [id number] - [id number] - [id number] Implanted:Qt y: 1 on 04/23/2021 by Dewey Bennett MD at OR [facility] Tissue - Human MUSCULOSKELETAL TRANSPLANT FND [id number] 08/17/2022 [id number] / [id number] / LOT NA Pivox Oblique Lateral Spinal System Interbody Implanted:Qt y: 1 on 04/23/2021 by Dewey Bennett MD at OR [facility] N/A: Spine Lumbar Medtronic 06/10/2026 [id number] / / [id number] Description:Mat'l: Peek/lui nium alloy Vitoss Bimodal Foam Pack 2.5cc - [id number] - [id number] Implanted:Qt y: 1 on 04/23/2021 by Dewey Bennett MD at OR [facility] NEFTALY : SPINE 06/06/2022 / [id number] / [id number] Graft Bone Dbm Matrix 2.5x5cm - [id number] - [id number] Implanted:Qt y: 1 on 04/23/2021 by Dewey Bennett MD at OR [facility] [employer] [id number] 11/17/2023 T42 210 / [id number] / LOT NA Vitoss Bimodal Foam Pack 2.5cc - [id number] - [id number] Implanted:Qt y: 1 on 04/23/2021 by Dewey Bennett MD at OR [facility] NEFTALY : SPINE [id number] 01/07/20221901 / [id number] / [id number] Screw Ped 6.5x45mm 124.465 - [id number] Implanted:Qt y: 2 on 04/23/2021 by Dewey Bennett MD at OR [facility] N/A: Spine Lumbar [employer] 124.465 / / 124.655 Globus Paramjit 55mm Implanted:Qt y: 1 on 04/23/2021 by Dewey Bennett MD at OR [facility] N/A: Spine Lumbar [employer] 124.655 / / 124.660 Globus Paramjit 60mm Implanted:Qt y: 1 on 04/23/2021 by Dewey Bennett MD at OR [facility] N/A: Spine Lumbar [employer] 124.660 / / documented as of this encounter Visit Diagnoses Diagnosis Persistent insomnia Persistent disorder of initiating or maintaining sleep documented in this encounter Advance Directives * [...] and were consensually agreed upon. Care Teams Sales And Leasing Agent Relationship Specialty Start Date End Date Lalit Perera DO [address] [place] [place] [address] PCP - General Family Medicine 10/07/18 documented as of this encounter
--- OUTSIDE RECORDS SUMMARY | 2024-10-27 04:40 | External Medical Summary | Summary of Care ---
Author Name Unknown Organization [facility] Address [address] [place] [address] Phone [phone] Care Team Providers Care Bakery Sales Clerk Name Role Phone SekouLalit drew DO Primary Care Provider [phone] Reason for Visit * Reason Comments eRx-Medication Refill Encounter Details Date Type Department Care Team (Late st Contact Info) Description 09/04/2024 Refill Rheumatology [facility] [address] [place] [address] Monica Saba MD [address] [place] [address] Rheumatoid arthritis involving multiple sites with positive rheumatoid factor (HCC) Allergies Active Allergy Reactions Criticality Noted Date Comments Sulfa Antibiotics Edema face/lips/tongue High 2001 documented as of this encounter (statuses as of 09/10/2024) Medications Medication Sig Dispensed Refills Start Date [...] MOUTH IN THE MORNING 90 Tablet 09/06/20 Active Leflunomide 10 MG Oral Tablet (Arava)Indications:Rheum atoid arthritis involving multiple sites with positive rheumatoid factor (HCC) TAKE 1 TABLET BY MOUTH IN THE MORNING 90 Tablet 1 03/03/20 24 024 Discontinued documented as of this encounter (statuses as of 09/10/2024) Active Problems Problem Noted Date Diagnosed Date [...] as of this encounter (statuses as of 09/10/2024) Resolved Problems Problem Noted Date Diagnosed Date [...] No, Advance Directive brochure given to patient. #OOR-192\CORROGHASSAN\THOR 01/24/2004 Overview: Renamed Per Clinical Trials Billing Project. Pt is a participant in the [employer] (Consortium of Rheumatology Researchers of [place]) national data collection study. For further information please call Dr Jesus Izaguirre or Jazmín Samuels, RN, CCRC at [phone] [facility] RESEARCH OTHER*[id number] 01/24/2004 05/07/2010 Overview: Renamed Per Clinical Trials Billing Project. Pt is a participant in the [facility] (Consortium of Rheumatology Researchers of [facility]) national data collection study. For further information please call Dr Jesus Izaguirre or Jazmín Samuels, RN, CCRC at [phone] Arthritis, rheumatoid 2015 documented as of this encounter (statuses as of 09/10/2024) Immunizations Name Administration Dates Next Due COVID-19 [...] (Prevnar) 09/02/2017 Pneumococcal Conjugate Vacci ne, 20-valent ([id number]) 12/09/2022 Pneumococcal Polysaccharide PPV23 (Pneumovax) 11/18/2011,08/19/2006 Season [...] encounter Miscellaneous Notes * Telephone Encounter - Caron Bradford CPhT - 09/10/2024 2:47 PM EDT Received message from [facility] regarding patient needing an appointment. Call Placed, Unable to reach pt, as there was no answer and no VM available to leave message. Sent the patient a [employer]! message to advise. Thank you, Caron Bradford CPhT [place] 09/10/2024,2:47 PM * Telephone Encounter - Robin Canela [facility] - 09/06/2024 12:00 PM EDTSigned Prescriptions: Disp Refills Leflunomide 10 MG Oral Tablet (Arava) 90 Tab*0 Sig: TAKE 1 TABLET BY MOUTH IN THE MORNING Authorizing Provider: MONICA SABA Ordering User: ROBIN CANELA * Telephone Encounter - Robin Canela RPh - 09/06/2024 11:53 AM EDT Rheumatology: Refill Request(s) Per review of the refill parameters, Medication was given as a 3-month supply d/t Appt overdue- routed to rheum scheduling pool Robin Canela RPh [place] Clinical Pharmacist Rheumatology Department 09/06/2024,12:00 PM documented in this encounter Plan of Treatment Upcoming Encounters Date Type Department Care Team (Late st Contact Info) Description 11/12/2024 10:15 AM EST Office Visit Dermatology [facility] [address] [place] [address] eJsus Gleason MD [address] [place] [address] 02/25/2025 1:00 PM EDT Office Visit Family Practice [facility] [address] [facility] [place] [address] Lalit Perera, [address] [facility] [place] [address] 09/07/2025 10:00 AM EDT Office Visit Rheumatology [place] [address] [address] [place] [address] Monica Saba MD [facility] [place], [place] [address] Scheduled Procedures Name Priority Associated Diagnoses Date/Ti [...] this encounter Medical Devices Implanted Type Area Knife Grinder Device Identifier Shelf Expiration Date Model / Serial / Lot Dbx 10cc [id number] - [id number] - [id number] Implanted:Qt y: 1 on 04/23/2021 by Dewey Bennett MD at OR [facility] Tissue - Human MUSCULOSKELETAL TRANSPLANT FND [id number] 08/17/2022 [id number] / [id number] / LOT NA Pivox Oblique Lateral Spinal System Interbody Implanted:Qt y: 1 on 04/23/2021 by Dewey Bennett MD at OR [facility] N/A: Spine Lumbar Medtronic 06/10/2026 [id number] / / [id number] Description:Mat'l: Peek/lui nium alloy Vitoss Bimodal Foam Pack 2.5cc - [id number] - [id number] Implanted:Qt y: 1 on 04/23/2021 by Dewey Bennett MD at OR [facility] NEFTALY : SPINE 06/06/[id number] / [id number] / [id number] Graft Bone Dbm Matrix 2.5x5cm - [id number] - [id number] Implanted:Qt y: 1 on 04/23/2021 by Dewey Bennett MD at OR [facility] [employer] [id number] 11/17/2023 T42 210 / [id number] / LOT NA Vitoss Bimodal Foam Pack 2.5cc - [id number] - [id number] Implanted:Qt y: 1 on 04/23/2021 by Dewey Bennett MD at OR [facility] NEFTALY : SPINE [id number] 01/07/20221901 / [id number] / [id number] Screw Ped 6.5x45mm 124.465 - [id number] Implanted:Qt y: 2 on 04/23/2021 by Dewey Bennett MD at OR [facility] N/A: Spine Lumbar [employer] 124.465 / / 124.655 Globus Paramjit 55mm Implanted:Qt y: 1 on 04/23/2021 by Dewey Bennett MD at OR [facility] N/A: Spine Lumbar [employer] 124.655 / / 124.660 Globus Paramjit 60mm Implanted:Qt y: 1 on 04/23/2021 by Dewey Bennett MD at OR [facility] N/A: Spine Lumbar [employer] 124.660 / / documented as of this encounter Visit Diagnoses Diagnosis Rheumatoid arthritis involving multiple sites with positive rheumatoid factor (HCC) documented in this encounter Advance Directives * [...] and were consensually agreed upon. Care Teams Bakery Sales Clerk Relationship Specialty Start Date End Date Lalit Perera DO [address] [place] [address] PCP - General Family Medicine 10/07/18 documented as of this encounter
--- OUTSIDE RECORDS SUMMARY | 2024-10-27 04:40 | External Medical Summary | Summary of Care ---
Author Name Unknown Organization [facility] Address [address] [place] [address] Phone [phone] Care Team Providers Care Potline Monitor Name Role Phone Tommy Barillas DO Primary Care Provider [phone] Reason for Visit * Reason Onset Date Comments Medication Refill 09/24/2024 Encounter Details Date Type Department Care Team (Late st Contact Info) Description 09/24/2024 Refill Family Practice [facility] [place] [address] [facility] [place] [address] Tommy Barillas DO [address] [facility] [place] [address] Rheumatoid arthritis involving multiple sites with positive rheumatoid factor (HCC); Sacroiliitis (HCC) Allergies Active Allergy Reactions Criticality Noted Date Comments Sulfa Antibiotics Edema face/lips/tongue High 2001 documented as of this encounter (statuses as of 09/27/2024) Medications Multiple Vitamins-Calcium (ONE-A-DAY WOMENS FORMULA) Tablet [...] 24 Active Folic Acid 1 MG Oral TabletIndications:Rheum atoid arthritis involving multiple sites with positive rheumatoid factor (HCC) TAKE 3 TABLETS BY MOUTH IN THE MORNING 270 Tablet 3 02/10/20 24 Active Atenolol 50 MG Oral Tablet (Tenormin)Indications:H [...] 24 Active Gabapentin 300 MG Oral Capsule (Neurontin)Indications: [...] 24 Active Leflunomide 10 MG Oral Tablet (Arava)Indications:Rheu matoid arthritis involving multiple sites with positive rheumatoid factor (HCC) TAKE 1 TABLET BY MOUTH IN THE MORNING 90 Tablet 09/06/20 24 Active HYDROcodone-Acetaminoph en 7.5-325 MG Oral TabletIndications:Rheum atoid arthritis involving multiple sites with positive rheumatoid factor (HCC),Sacroiliitis (HCC) Take 1 Tablet by mouth 3 times a day as needed for Pain, Severe. 90 Tablet 09/27/20 24 Active HYDROcodone-Acetaminoph en 7.5-325 MG Oral TabletIndications:Rheum atoid arthritis involving multiple sites with positive rheumatoid factor (HCC),Sacroiliitis (HCC) Take 1 Tablet by mouth 3 times a day as needed for Pain, Severe. 90 Tablet 08/24/20 24 024 Disconti nued(Ref ill) documented as of this encounter (statuses as of 09/27/2024) Active Problems Problem Noted Date Diagnosed Date [...] as of this encounter (statuses as of 09/27/2024) Resolved Problems Problem Noted Date Diagnosed Date [...] No, Advance Directive brochure given to patient. #[id number]\[id number]\THOR 01/24/2004 Overview (02/23/2010): Renamed Per Clinical Trials Billing Project. Pt is a participant in the [facility] (Consortium of Rheumatology Researchers of [facility]) national data collection study. For further information please call Dr Jesus Izaguirre or Jazmín Samuels, RN, CCRC at [phone] [facility] RESEARCH OTHER*[id number] 01/24/2004 05/07/2010 Overview (02/23/2010): Renamed Per Clinical Trials Billing Project. Pt is a participant in the [facility] ([facility] of Rheumatology Researchers of [facility]) national data collection study. For further information please call Dr Jesus Izaguirre or Jazmín Samuels, RN, CCRC at [phone] Arthritis, rheumatoid 2015 documented as of this encounter (statuses as of 09/27/2024) Immunizations Name Administration Dates Next Due COVID-19 [...] (Prevnar) 09/02/2017 Pneumococcal Conjugate Vacci ne, 20-valent ([id number]) 12/09/2022 Pneumococcal Polysaccharide PPV23 (Pneumovax) 11/18/2011,08/19/2006 Season [...] No 04/23/2021 4:23 PM EDT Cristofer Sánchez, OLIVER * Are you blind or do you have serious difficulty seeing, even when wearing glasses? Answer Date of Assessment Author No 04/23/2021 4:23 PM EDT Cristofer Sánchez, RN * Do you have serious difficulty walking or climbing stairs? (5 years old or older) Answer Date of Assessment Author Yes 04/24/2021 9:03 AM EDT Jf Quijano RN * Do you have difficulty dressing or bathing? (5 years old or older) Answer Date of Assessment Author No 04/23/2021 4:41 PM EDT Cristofer Sánchez, RN * Because of a physical, mental, or emotional condition, do you have difficulty doing errands alone such as visiting a doctors office or shopping? (15 years old or older) Answer Date of Assessment Author Yes 04/23/2021 4:41 PM EDT Cristofer Sánchez, RN documented as of this encounter Mental Status * Because of a physical, mental, or emotional condition, do you have serious difficulty concentrating, remembering, or making decisions? (5 years old or older) Answer Entry Date Author No 04/23/2021 4:23 PM EDT Cristofer Sánchez, RN documented in this encounter Miscellaneous Notes * Telephone Encounter - Tommy Barillas DO - 09/27/2024 12:59 PM ESTSigned Prescriptions: Disp Refills HYDROcodone-Acetaminophen 7.5-325 MG Oral *90 Tab*0 Sig: Take 1 Tablet by mouth 3 times a day as needed for Pain, Severe. Authorizing Provider: TOMMY BARILLAS * Telephone Encounter - Jana Santa [facility] - 09/27/2024 7:44 AM ESTPending Prescriptions: Disp Refills HYDROcodone-Acetaminophen 7.5-325 MG Oral *90 Tab*0 Sig: Take 1 Tablet by mouth 3 times a day as needed for Pain, Severe. * Telephone Encounter - Jana Santa [facility] - 09/27/2024 7:44 AM ESTPending Prescriptions: Disp Refills HYDROcodone-Acetaminophen 7.5-325 MG Oral *90 Tab*0 Sig: Take 1 Tablet by mouth 3 times a day as needed for Pain, Severe. * Telephone Encounter - Jana Santa [facility] - 09/27/2024 7:44 AM EST I have reviewed the patients controlled substance dispensing history in the Prescription Drug Monitoring Program in compliance with the [facility] regulations before prescribing a controlled substance. PDMP checked on 09/27/2024. Pending Prescriptions: Disp Refills HYDROcodone-Acetaminophen 7.5-325 MG Oral*90 Tab*0 Sig: Take 1 Tablet by mouth 3 times a day as needed for Pain, Severe. Last Visit: 07/30/2024 (in office), 10/17/2020 (telemedicine) Next Visit: 02/25/2025 Date medication was last filled: 08/24/24 Date medication is due for refill: 09/22/24 Pharmacy: [facility] [address] [place] [address] Is this request for a controlled substance? Yes and Urine Drug Screen Not completed Toxicology results: No results found. However, due to the size of the patient record, not all encounters were searched.Please check Results Review for a complete set of results. Please approve if appropriate. Thank You, Jana Santa [facility] Clinical Pharmacist [facility] ([facility]) [phone] [id number] 09/27/2024, 7:44 AM * Telephone Encounter - Melina Breen, idea worker - 09/24/2024 2:32 PM EST Did you pend patient's preferred pharmacy and medication before forwarding?yes Pharmacy: [facility] [address] [place] [address] Pending Prescriptions: Disp Refills HYDROcodone-Acetaminophen 7.5-325 MG Oral*90 Tab*0 Sig: Take 1 Tablet by mouth 3 times a day as needed for Pain, Severe. Last Visit: 07/30/2024 (in office), 10/17/2020 (telemedicine) Next Visit: 02/25/2025 If no future appointments scheduled, and last appointment is greater than a year ago, please schedule patient for a follow-up appointment Last date the medication was ordered: 08/24/2024 Is this request for a controlled substance?Yes, What was the last refill date 08/24/24 w/ quantity 90 and dosage 7.5-325 and Urine Drug Screen was completed Urine Drug Screen:No results found. However, due to the size of the patient record, not all encounters were searched. Please check Results Review for a complete set of results. Patient Phone Numbers Labs: Lab Results Component Value Date/Time CREAT 0.8 08/04/2024 07:32 AM CREAT 0.8 12/04/2020 10:26 AM POTASSIUM 4.1 08/04/2024 07:32 AM POTASSIUM 4.3 06/09/2019 02:11 PM TSH 1.63 12/09/2022 04:03 PM TSH 1.63 04/08/2014 04:49 PM LDL 75 08/04/2024 07:32 AM LDL 78 06/30/2018 09:12 AM LDL NOT APPLICABLE 06/30/2018 09:12 AM ALT 19 08/04/2024 07:32 AM ALT 18 12/04/2020 10:26 AM HGBA1C 5.4 03/19/2021 03:55 PM HGBA1C 5.6 10/07/2018 09:12 AM documented in this encounter Plan of Treatment Upcoming Encounters Date Type Department Care Team (Late st Contact Info) Description 11/12/2024 10:15 AM EST Office Visit Dermatology [facility] [address] [facility] [place] [address] Jesus Gleason MD [address] [place] [address] 02/25/2025 1:00 PM EDT Office Visit Family Practice [facility] [address] [place] [address] Tommy Barillas, DO [address] [facility] [place] [address] 09/07/2025 10:00 AM EDT Office Visit Rheumatology [place] [id number] [employer] [place] [address] Anil Hansen MD [address] [place] [address] Scheduled Procedures Name Priority Associated Diagnoses Date/Ti [...] this encounter Medical Devices Implanted Type Area Commercial Loan Specialist Device Identifier Shelf Expiration Date Model / Serial / Lot Dbx 10cc [id number] - [id number] - [id number] Implanted:Qt y: 1 on 04/23/2021 by Dewey Bennett MD at OR [facility] Tissue - Human MUSCULOSKELETAL TRANSPLANT FND [id number] 08/17/2022 [id number] / [id number] / LOT NA Pivox Oblique Lateral Spinal System Interbody Implanted:Qt y: 1 on 04/23/2021 by Dewey Bennett MD at OR [facility] N/A: Spine Lumbar Medtronic 06/10/2026 [id number] / / [id number] Description:Mat'l: Peek/lui nium alloy Vitoss Bimodal Foam Pack 2.5cc - [id number] - [id number] Implanted:Qt y: 1 on 04/23/2021 by Dewey Bennett MD at OR [facility] NEFTALY : SPINE 06/06/2022 / [id number] / [id number] Graft Bone Dbm Matrix 2.5x5cm - [id number] - [id number] Implanted:Qt y: 1 on 04/23/2021 by Dewey Bennett MD at OR [facility] [employer] [id number] 11/17/2023 T42 210 / [id number] / LOT NA Vitoss Bimodal Foam Pack 2.5cc - [id number] - [id number] Implanted:Qt y: 1 on 04/23/2021 by Dewey Bennett MD at OR [facility] NEFTALY : SPINE [id number] 01/07/20221901 / [id number] / [id number] Screw Ped 6.5x45mm 124.465 - [id number] Implanted:Qt y: 2 on 04/23/2021 by Dewey Bennett MD at OR [facility] N/A: Spine Lumbar [employer] 124.465 / / 124.655 Globus Paramjit 55mm Implanted:Qt y: 1 on 04/23/2021 by Dewey Bennett MD at OR [facility] N/A: Spine Lumbar [employer] 124.655 / / 124.660 Globus Paramjit 60mm Implanted:Qt y: 1 on 04/23/2021 by Dewey Bennett MD at OR [facility] N/A: Spine Lumbar [employer] 124.660 / [...] and were consensually agreed upon. Care Teams Potline Monitor Relationship Specialty Start Date End Date Tommy Barillas DO [address] [place] [address] PCP - General Family Medicine 10/07/18 documented as of this encounter
--- OUTSIDE RECORDS SUMMARY | 2024-10-27 04:40 | External Medical Summary | Summary of Care ---
Author Name Unknown Organization [facility] Address [address] [place] [address] Phone [phone] Care Team Providers Care Supervisor Ornamental Ironworking Name Role Phone Lalit Perera DO Primary Care Provider [phone] Reason for Visit * Reason Onset Date Comments Medication Refill 08/30/2024 Encounter Details Date Type Department Care Team (Late st Contact Info) Description 08/30/2024 Refill Family Practice [facility] [place] [address] [facility] [place] [address] Lalit Perera DO [address] [facility] [place] [address] Allergies Active Allergy Reactions Criticality Noted Date [...] THE MORNING 270 Tablet 3 02/10/2024 Active Leflunomide 10 MG Oral Tablet (Arava)Indications:Rheuma toid arthritis involving multiple sites with positive rheumatoid factor (HCC) TAKE 1 TABLET BY MOUTH IN THE MORNING 90 Tablet 1 03/03/2024 Active Atenolol 50 MG Oral Tablet (Tenormin)Indications:HTN , goal below 140/90 TAKE 1 AND 1/2 TABLETS BY MOUTH IN THE MORNING 135 Tablet 2 02/28/2024 Active DULoxetine HCl 60 MG Oral Capsule Delayed Release Particles (Cymbalta)Indications:Bessemer ctive depression,Spinal stenosis of lumbar region with [...] EVERY MORNING 90 Tablet 3 08/30/2024 Active documented as of this encounter (statuses [...] Izaguirre or Jazmín Samuels, RN, CCRC at [phone] [facility] RESEARCH OTHER*[id number] 01/24/2004 05/07/2010 Overview: Renamed Per Clinical Trials Billing Project. Pt is a participant in the [facility] (Consortium of Rheumatology Researchers of [place]) national data collection study. For further information please call Dr Jesus Izaguirre or Jazmín Samuels RN, [facility] at [phone] Arthritis, rheumatoid 2015 documented as of this encounter (statuses as of 08/30/2024) Immunizations Name Administration Dates Next Due COVID-19 mRNA, LNP-s, No Pre serve, 2-Dose Series (Moderna) 10/05/2021,02/09/2021,01/12/2021 COVID-19, MRNA-LNP, 23-24, P F, 30 MCG/0.3 mL, 12 YRS AND ABOVE, IM (PFIZER-Comirnat) 07/30/2023 COVID-19, mRNA, LNP-s, PF, B ooster, 100mcg/0.5mg (Moderna) 06/05/2022 H1N1 2009 Influenza, IM 11/21/2009 MMR - Measles/Mumps/Rubella Vaccine 05/05/2019 Pneumococcal Conjugate Vacc, 13 Valent (Prevnar) 09/02/2017 Pneumococcal Conjugate Vacci ne, 20-valent ([id number]) 12/09/2022 Pneumococcal Polysaccharide PPV23 (Pneumovax) 11/18/2011,08/19/2006 Season [...] encounter Miscellaneous Notes * Telephone Encounter - Hilton Coleman - 08/30/2024 2:35 PM EDTRefused Prescriptions: Disp Refills Meloxicam 15 MG Oral Tablet (Mobic) 90 Tab*3 Sig: Take 1 Tabletby mouth in the morning. In the morning..Refused By: MARIA LUISA COLEMANeason for Refusal: Duplicate Requ est documented in this encounter Plan of Treatment Upcoming Encounters Date Type Department Care Team (Late st Contact Info) Description 11/12/2024 10:15 AM EST Office Visit Dermatology [facility] [place] [address] [place] [address] Jesus Gleason MD [address] [place] [address] 02/25/2025 1:00 PM EDT Office Visit Family Practice [facility] [place] [address] [place] [address] Lalit Perera DO [address] [place] [address] Scheduled Procedures Name Priority Associated Diagnoses Date/Ti [...] this encounter Medical Devices Implanted Type Area Television Engineer Device Identifier Shelf Expiration Date Model / Serial / Lot Dbx [facility] 862606 - [id number] - [id number] Implanted:Qt y: 1 on 04/23/2021 by Dewey Bennett MD at OR [facility] Tissue - Human MUSCULOSKELETAL TRANSPLANT FND [id number] 08/17/2022 [id number] / [id number] / LOT NA Pivox Oblique Lateral Spinal System Interbody Implanted:Qt y: 1 on 04/23/2021 by Dewey Bennett MD at OR [facility] N/A: Spine Lumbar Medtronic 06/10/2026 [id number] / / [id number] Description:Mat'l: Peek/lui nium alloy Vitoss Bimodal Foam Pack 2.5cc - [id number] - [id number] Implanted:Qt y: 1 on 04/23/2021 by Dewey Bennett MD at OR [facility] NEFTALY : SPINE 06/06/2022 / [id number] / [id number] Graft Bone Dbm Matrix 2.5x5cm - [id number] - [id number] Implanted:Qt y: 1 on 04/23/2021 by Dewey Bennett MD at OR [facility] [employer] [id number] 11/17/2023 T42 210 / [id number] / LOT NA Vitoss Bimodal Foam Pack 2.5cc - [id number] - [id number] Implanted:Qt y: 1 on 04/23/2021 by Dewey Bennett MD at OR [facility] NEFTALY : SPINE [id number] 01/07/2022 190 / [id number] / [id number] Screw Ped 6.5x45mm 124.465 - [id number] Implanted:Qt y: 2 on 04/23/2021 by Dewey Bennett MD at OR [facility] N/A: Spine Lumbar [employer] 124.465 / / 124.655 Globus Paramjit 55mm Implanted:Qt y: 1 on 04/23/2021 by Dewey Bennett MD at OR [facility] N/A: Spine Lumbar [employer] 124.655 / / 124.660 Globus Paramjit 60mm Implanted:Qt y: 1 on 04/23/2021 by Dewey Bennett MD at OR [facility] N/A: Spine Lumbar [employer] 124.660 [...] and were consensually agreed upon. Care Teams Supervisor Ornamental Ironworking Relationship Specialty Start Date End Date Lalit Perera DO [address] [place] [address] PCP - General Family Medicine 10/07/18 documented as of this encounter
--- OUTSIDE RECORDS SUMMARY | 2024-10-27 04:40 | External Medical Summary | Summary of Care ---
Author Name Unknown Organization [facility] Address [address] [place] [address] Phone [phone] Care Team Providers Care Oim Consultant Name Role Phone Tommy Barillas DO Primary Care Provider [phone] Reason for Visit * Reason Comments eRx-Medication Refill Encounter Details Date Type Department Care Team (Late st Contact Info) Description 08/10/2024 Refill Family Practice [facility] [place] [address] [facility] [place] [address] Tommy Barillas DO [address] [facility] [place] [address] Pure hypercholesterolemia Allergies Active Allergy Reactions Criticality Noted Date Comments Sulfa Antibiotics Edema face/lips/tongue High 2001 documented as of this encounter (statuses as of 08/11/2024) Medications Medication Sig Dispensed Refills Start Date [...] EVERY MORNING 90 Tablet 2 11/11/19 24 Active Fluorouracil 5 % External Cream (Efudex) [...] spasms. 135 Capsule 3 07/19/20 24 Active HYDROcodone-Acetaminophe n 7.5-325 MG Oral TabletIndications:Rheuma toid arthritis involving multiple sites with positive rheumatoid factor (HCC),Sacroiliitis (HCC) Take 1 Tablet by mouth 3 times a day as needed for Pain, Severe. 90 Tablet 07/26/20 24 Active traZODone HCl 50 MG Oral Tablet (Desyrel)Indications:Per sistent insomnia TAKE 2 TABLETS BY MOUTH BEFORE BEDTIME 180 Tablet 1 08/10/20 24 Active Atorvastatin Calcium 40 MG Oral Tablet (Lipitor)Indications:Pur e hypercholesterolemia TAKE 1 TABLET BY MOUTH IN THE MORNING 90 Tablet 3 08/11/20 24 Active Atorvastatin Calcium 40 MG Oral Tablet (Lipitor)Indications:Pur e hypercholesterolemia TAKE 1 TABLET BY MOUTH IN THE MORNING 90 Tablet 3 06/27/20 23 024 Discontinued documented as of this encounter (statuses as of 08/11/2024) Active Problems Problem Noted Date Diagnosed Date [...] as of this encounter (statuses as of 08/11/2024) Resolved Problems Problem Noted Date Diagnosed Date [...] Izaguirre or Jazmín Samuels, RN, CCRC at [phone] [facility] RESEARCH OTHER*[id number] 01/24/2004 05/07/2010 Overview: Renamed Per Clinical Trials Billing Project. Pt is a participant in the [facility] (Consortium of Rheumatology Researchers of [place]) national data collection study. For further information please call Dr Jesus Izaguirre or Jazmín Samuels, RN, CCRC at [phone] Arthritis, rheumatoid 2015 documented as of this encounter (statuses as of 08/11/2024) Immunizations Name Administration Dates Next Due COVID-19 mRNA, LNP-s, No Pre serve, 2-Dose Series (Moderna) 10/05/2021,02/09/2021,01/12/2021 COVID-19, MRNA-LNP, 23-24, P F, 30 MCG/0.3 mL, 12 YRS AND ABOVE, IM ([facility]) 07/30/2023 COVID-19, mRNA, LNP-s, PF, B ooster, 100mcg/0.5mg (Moderna) 06/05/2022 H1N1 2009 Influenza, IM 11/21/2009 MMR - Measles/Mumps/Rubella Vaccine 05/05/2019 Pneumococcal Conjugate Vacc, 13 Valent (Prevnar) 09/02/2017 Pneumococcal Conjugate Vacci ne, 20-valent ([id number]) 12/09/2022 Pneumococcal Polysaccharide PPV23 (Pneumovax) 11/18/2011,08/19/2006 Season [...] encounter Miscellaneous Notes * Telephone Encounter - Muna Peraza [facility] - 08/11/2024 11:58 AM EDT Signed Prescriptions: Disp Refills Atorvastatin Calcium 40 MG Oral Tablet (Li*90 Tab*3 Sig: TAKE 1 TABLET BY MOUTH IN THE MORNINGAuthorizing Provider: TOMMY BARILLAS User: MUNA PERAZA documented in this encounter Plan of Treatment Upcoming Encounters Date Type Department Care Team (Late st Contact Info) Description 08/24/2024 9:40 AM EDT Office Visit Rheumatology [facility] [address] [facility] [place] [address] Anil Hansen MD [address] [facility] [place], [place] [address] 11/12/2024 10:15 AM EST [facility] [place] [address] [place] [address] Jesus Gleason MD [address] [place] [address] 02/25/2025 1:00 PM EDT Office Visit Family Practice [facility] [place] [address] [place] [address] Tommy Barillas DO [address] [place] [address] Scheduled Procedures Name Priority Associated Diagnoses Date/Ti [...] this encounter Medical Devices Implanted Type Area Wallpaper Cleaner Device Identifier Shelf Expiration Date Model / Serial / Lot Dbx cc 559270 - [id number] - [id number] Implanted:Qt y: 1 on 04/23/2021 by Dewey Bennett MD at OR [facility] Tissue - Human MUSCULOSKELETAL TRANSPLANT FND [id number] 08/17/2022 [id number] / [id number] / LOT NA Pivox Oblique Lateral Spinal System Interbody Implanted:Qt y: 1 on 04/23/2021 by Dewey Bennett MD at OR [facility] N/A: Spine Lumbar Medtronic 06/10/2026 [id number] / / [id number] Description:Mat'l: Peek/lui nium alloy Vitoss Bimodal Foam Pack 2.5cc - [id number] - [id number] Implanted:Qt y: 1 on 04/23/2021 by Dewey Bennett MD at OR [facility] NEFTALY : SPINE 06/06/202221015901-2732 / [id number] / [id number] Graft Bone Dbm Matrix 2.5x5cm - [id number] - [id number] Implanted:Qt y: 1 on 04/23/2021 by Dewey Bennett MD at OR [facility] [employer] [id number] 11/17/2023 T42 210 / [id number] 5 / LOT NA Vitoss Bimodal Foam Pack 2.5cc - [id number] - [id number] Implanted:Qt y: 1 on 04/23/2021 by Dewey Bennett MD at OR [facility] NEFTALY : SPINE [id number] 01/07/2022 210- 190 / [id number] / [id number] Screw Ped 6.5x45mm 124.465 - [id number] Implanted:Qt y: 2 on 04/23/2021 by Dewey Bennett MD at OR [facility] N/A: Spine Lumbar [employer] 124.465 / / 124.655 Globus Paramjit 55mm Implanted:Qt y: 1 on 04/23/2021 by Dewey Bennett MD at OR [facility] N/A: Spine Lumbar [employer] 124.655 / / 124.660 Globus Paramjit 60mm Implanted:Qt y: 1 on 04/23/2021 by Dewey Bennett MD at OR [facility] N/A: Spine Lumbar [employer] 124.660 / / documented as of this encounter Visit Diagnoses Diagnosis Pure hypercholesterolemia documented in this encounter Advance Directives * [...] and were consensually agreed upon. Care Teams Oim Consultant Relationship Specialty Start Date End Date Tommy Barillas DO [address] [place] [address] PCP - General Family Medicine 10/07/18 documented as of this encounter
--- OUTSIDE RECORDS SUMMARY | 2024-10-27 04:41 | External Medical Summary | Summary of Care ---
Author Name Unknown Organization [facility] Address [address] [place] [address] Phone [phone] Care Team Providers Care Metal Furniture Panel Coverer Name Role Phone Lalit Perera DO Primary Care Provider [phone] Reason for Visit * Reason Comments eRx-Medication Refill Encounter Details Date Type Department Care Team (Late st Contact Info) Description 08/09/2024 Refill Family Practice [facility] [place] [address] [facility] [place] [address] Lalit Perera DO 200 [facility] [place] [address] Persistent insomnia Allergies Active Allergy Reactions Criticality [...] for Wheezing. 18 g 3 07/16/2022 Active Atorvastatin Calcium 40 MG Oral Tablet (Lipitor)Indications:Pure hypercholesterolemia TAKE 1 TABLET BY MOUTH IN THE MORNING 90 Tablet 3 06/27/2023 Active Calcium Carbonate 600 MG Oral Tablet (Calcium 600) Take 1 Tablet by mouth in the morning. Active Meloxicam 15 MG Oral Tablet (Mobic) TAKE 1 TABLET BY MOUTH EVERY MORNING 90 Tablet 2 11/11/2023 Active Fluorouracil 5 % External Cream (Efudex) [...] Muscle spasms. 135 Capsule 3 07/19/2024 Active HYDROcodone-Acetaminophen 7.5-325 MG Oral TabletIndications:Rheumat oid arthritis involving multiple sites with positive rheumatoid factor (HCC),Sacroiliitis (HCC) Take 1 Tablet by mouth 3 times a day as needed for Pain, Severe. 90 Tablet 07/26/2024 Active traZODone HCl 50 MG Oral Tablet (Desyrel)Indications:Pers istent insomnia TAKE 2 TABLETS BY MOUTH BEFORE BEDTIME 180 Tablet 1 08/10/2024 Active documented as of this encounter (statuses [...] Izaguirre or Jazmín Samuels, RN, CCRC at [phone] [employer] OTHER*[id number] 01/24/2004 05/07/2010 Overview: Renamed Per Clinical Trials Billing Project. Pt is a participant in the [employer] (Consortium of Rheumatology Researchers of [place]) national data collection study. For further information please call Dr Jesus Izaguirre or Jazmín Samuels RN, [facility] at [phone] Arthritis, rheumatoid 2015 documented as of this [...] (Prevnar) 09/02/2017 Pneumococcal Conjugate Vacci ne, 20-valent ([id number]) 12/09/2022 Pneumococcal Polysaccharide PPV23 (Pneumovax) 11/18/2011,08/19/2006 Season [...] encounter Miscellaneous Notes * Telephone Encounter - Monica Dorman [facility] - 08/10/2024 5:29 PM EDTRefused Prescriptions: Disp Refills traZODone HCl 50 MG Oral Tablet (Desyrel) 180 Ta*1 Sig: TAKE 2 TABLETS BY MOUTH BEFORE BEDTIMERefused By: MONICA DORMANeason for Refusal: Duplicate Request--- documented in this encounter Plan of Treatment Upcoming Encounters Date Type Department Care Team (Late st Contact Info) Description 08/24/2024 9:40 AM EDT Office Visit Rheumatology [place] [address] [facility] [place] [address] Monica Hansen MD [facility] [place] [address] 11/12/2024 10:15 AM EST Office Visit Dermatology [facility] [address] [facility] [place] [address] Jesus Gleason MD [address] [place] [address] 02/25/2025 1:00 PM EDT Office Visit Family Practice [facility] [address] [place] [address] Lalit Perera DO [address] [facility] [place] [address] Scheduled Procedures Name Priority Associated Diagnoses Date/Ti [...] this encounter Medical Devices Implanted Type Area Charge Entry Device Identifier Shelf Expiration Date Model / Serial / Lot Dbx 10cc [id number] - [id number] - [id number] Implanted:Qt y: 1 on 04/23/2021 by Dewey Bennett MD at OR [facility] Tissue - Human MUSCULOSKELETAL TRANSPLANT FND [id number] 08/17/2022 [id number] / [id number] / LOT NA Pivox Oblique Lateral Spinal System Interbody Implanted:Qt y: 1 on 04/23/2021 by Dewey Bennett MD at OR [facility] N/A: Spine Lumbar Medtronic 06/10/2026 [id number] / / [id number] Description:Mat'l: Peek/lui nium alloy Vitoss Bimodal Foam Pack 2.5cc - [id number] - [id number] Implanted:Qt y: 1 on 04/23/2021 by Dewey Bennett MD at OR [facility] NEFTALY : SPINE 06/06/2022 / [id number] / [id number] Graft Bone Dbm Matrix 2.5x5cm - [id number] - [id number] Implanted:Qt y: 1 on 04/23/2021 by Dewey Bennett MD at OR [facility] [employer] [id number] 11/17/2023 T42 210 / [id number] / LOT NA Vitoss Bimodal Foam Pack 2.5cc - [id number] - [id number] Implanted:Qt y: 1 on 04/23/2021 by Dewey Bennett MD at OR [facility] NEFTALY : SPINE [id number] 01/07/20221901 / [id number] / [id number] Screw Ped 6.5x45mm 124.465 - [id number] Implanted:Qt y: 2 on 04/23/2021 by Dewey Bennett MD at OR [facility] N/A: Spine Lumbar [employer] 124.465 / / 124.655 Globus Paramjit 55mm Implanted:Qt y: 1 on 04/23/2021 by Dewey Bennett MD at OR [facility] N/A: Spine Lumbar [employer] 124.655 / / 124.660 Globus Paramjit 60mm Implanted:Qt y: 1 on 04/23/2021 by Dewey Bennett MD at OR [facility] N/A: Spine Lumbar [employer] 124.660 [...] and were consensually agreed upon. Care Teams Metal Furniture Panel Coverer Relationship Specialty Start Date End Date Lalit Perera DO [address] [facility] [place] [address] PCP - General Family Medicine 10/07/18 documented as of this encounter
--- OUTSIDE RECORDS SUMMARY | 2024-10-27 04:41 | External Medical Summary | Summary of Care ---
Author Name Unknown Organization [facility] Address [address] [place] [address] Phone [phone] Care Team Providers Care Neurology Nurse Name Role Phone Lalit Perera DO Primary Care Provider [phone] Encounter Details Date Type Department Care Team (Late st Contact Info) Description 08/06/2024 Orders Only Family Practice [address] [place] [address] [facility] [place] [address] Lalit Perera DO 200 [facility] [place] [address] Breast cancer screening by mammogram; Routine medical exam Allergies Active Allergy Reactions Criticality Noted Date Comments Sulfa Antibiotics Edema face/lips/tongue High 2001 documented as of this encounter (statuses as of 08/06/2024) Medications Medication Sig Dispensed Refills Start Date [...] THE MORNING 135 Tablet 2 02/28/2024 Active traZODone HCl 50 MG Oral Tablet (Desyrel)Indications:Pers istent insomnia TAKE 2 TABLETS BY MOUTH BEFORE BEDTIME 180 Tablet 1 04/07/2024 Active DULoxetine HCl 60 MG Oral Capsule [...] for Pain, Severe. 90 Tablet 07/26/2024 Active documented as of this encounter (statuses as of 08/06/2024) Active Problems Problem Noted Date Diagnosed Date [...] as of this encounter (statuses as of 08/06/2024) Resolved Problems Problem Noted Date Diagnosed Date [...] Izaguirre or Jazmín Samuels, RN, CCRC at [phone] [employer] OTHER*[id number] 01/24/2004 05/07/2010 Overview: Renamed Per Clinical Trials Billing Project. Pt is a participant in the [employer] (Consortium of Rheumatology Researchers of [place]) national data collection study. For further information please call Dr Jesus Izaguirre or Jazmín Samuels RN, CCR at [phone] Arthritis, rheumatoid 2015 documented as of this encounter (statuses as of 08/06/2024) Immunizations Name Administration Dates Next Due COVID-19 mRNA, LNP-s, No Pre serve, 2-Dose Series (Moderna) 10/05/2021,02/09/2021,01/12/2021 COVID-19, MRNA-LNP, 23-24, P F, 30 MCG/0.3 mL, 12 YRS AND ABOVE, IM (PFIZER-Comirnaty) 07/30/2023 COVID-19, mRNA, LNP-s, PF, B ooster, 100mcg/0.5mg (Moderna) 06/05/2022 H1N1 2009 Influenza, IM 11/21/2009 MMR - Measles/Mumps/Rubella Vaccine 05/05/2019 Pneumococcal Conjugate Vacc, 13 Valent (Prevnar) 09/02/2017 Pneumococcal Conjugate Vacci ne, 20-valent (Iodupcu24) 12/09/2022 Pneumococcal Polysaccharide PPV23 (Pneumovax) 11/18/2011,08/19/2006 Season Influenza, Quad, PF, Adjuvanted, 65+ Yrs, IM (FLUAD) 07/30/2023 Seasonal Influenza, High Dos e, Trivalent, PF, IM (Fluzone HD) 07/30/2024 Seasonal Influenza, PF, 6 M & above, IM , (FluLaval or Fluzone) 07/19/2020,07/26/2019,10/07/2018,08/22 Seasonal Influenza, Quadriva lent Hd (Fluzone Hd) 07/25/2022 Seasonal Influenza, Quadriva lent, No Preserve, IM 09/27/2021,09/02/2016,09/26/2015 Seasonal Influenza, Trivalen t, (IIV3), with Preserv, (Fluzone) 08/29/2014,08/28/2013,01/19/2013(Defer red: Patient Refused),09/16/2012,09/25/2011, 010,12/18/2009,09/28/2008,08/26/2007,1 TDAP (age 10 and older)(Boostrix) 01/19/2013 Zoster [...] 08/24/2024 9:40 AM EDT Office Visit Rheumatology [place] [id number] [place] [address] Anil Hansen MD [address] [place] [address] 11/12/2024 10:15 AM EST Office Visit Dermatology [facility] 200 [facility] [place] [address] Jesus Gleason MD [address] [place] [address] 02/25/2025 1:00 PM EDT Office Visit Family Practice [facility] [address] [place] [address] Lalit Perera, DO 200 [facility] [place] [address] Scheduled Procedures Name Priority Associated Diagnoses Date/Ti me COLONOSCOPY FLEXIBLE PROXIMA L DIAGNOSTIC Recall Encounter for screening colonoscopy Health Maintenance Due Date Last Done Comments Hepatitis C Screening 1975 Cologuard 2002 Fecal Occult Blood Test 2002 Sigmoidoscopy 2002 DTap/Tdap Vaccines (2 - Td or Tdap) 01/19/2023 01/19/2013 Adult Wellness Visit 2023 COVID-19 Vaccine ( season) 2024 07/30/2023, 06/05/2022, 10/05/2021, Additional history exists Mammogram 08/04/2024 08/04/2023, 07/12, 07/29/2022, Additional history exists Depression Monitoring 10/07/2024 10/07/2023 Albumin/Creatinine Ratio 12/04/2024 022, 08/09/2014, 06/04/2013 GFR 08/04/2025 08/04/2024, 01/09, 08/18/2023, Additional history exists DXA Scan 11/06/2027 11/06/2020 [...] this encounter Medical Devices Implanted Type Area Small Engine Trainer Device Identifier Shelf Expiration Date Model / Serial / Lot Dbx 10cc [id number] - [id number] - [id number] Implanted:Qt y: 1 on 04/23/2021 by Dewey Bennett MD at OR [facility] Tissue - Human MUSCULOSKELETAL TRANSPLANT FND [id number] 08/17/2022 [id number] / [id number] / LOT NA Pivox Oblique Lateral Spinal System Interbody Implanted:Qt y: 1 on 04/23/2021 by Dewey Bennett MD at OR [facility] N/A: Spine Lumbar Medtronic 06/10/2026 [id number] / / [id number] Description:Mat'l: Peek/lui nium alloy Vitoss Bimodal Foam Pack 2.5cc - [id number] - [id number] Implanted:Qt y: 1 on 04/23/2021 by Dewey Bennett MD at OR [facility] NEFTALY : SPINE 06/06/2022 / [id number] / [id number] Graft Bone Dbm Matrix 2.5x5cm - [id number] - [id number] Implanted:Qt y: 1 on 04/23/2021 by Dewey Bennett MD at OR [facility] [employer] [id number] 11/17/2023 T42 210 / [id number] / LOT NA Vitoss Bimodal Foam Pack 2.5cc - [id number] - [id number] Implanted:Qt y: 1 on 04/23/2021 by Dewey Bennett MD at OR [facility] NEFTALY : SPINE [id number] 01/07/2022 190 / [id number] / [id number] Screw Ped 6.5x45mm 124.465 - [id number] Implanted:Qt y: 2 on 04/23/2021 by Dewey Bennett MD at OR [facility] N/A: Spine Lumbar [employer] 124.465 / / 124.655 Globus Paramjit 55mm Implanted:Qt y: 1 on 04/23/2021 by Dewey Bennett MD at OR [facility] N/A: Spine Lumbar [employer] 124.655 / / 124.660 Globus Paramjit 60mm Implanted:Qt y: 1 on 04/23/2021 by Dewey Bennett MD at OR [facility] N/A: Spine Lumbar [employer] 124.660 / / documented as of this encounter Visit Diagnoses Diagnosis Breast cancer screening by mammogram Routine medical exam Routine general medical examination at a health care facility documented in this encounter Advance Directives * [...] and were consensually agreed upon. Care Teams Neurology Nurse Relationship Specialty Start Date End Date Lalit Perera DO [address] [place] [address] PCP - General Family Medicine 10/07/18 documented as of this encounter
[2024-10-27 07:08] LABS: Estimated Average Glucose 111 mg/dl; Hemoglobin A1C 5.5 % (4.5-5.6)
[2024-10-27 08:47] LABS: Basophils # (auto) 0.04 K/uL (0.00-0.20); Basophils % (auto) 0.4 %; Eosinophils # (auto) 0.03 K/uL (0.00-0.50); Eosinophils % (auto) 0.3 %; Hematocrit (blood only) 34.5 % (37.0-47.0); Hemoglobin 11.6 g/dl (12.0-16.0); Immature Granulocytes # (auto) 0.02 K/uL (0.01-0.20); Immature Granulocytes % (auto) 0.2 %; Lymphocytes # (auto) 2.11 K/uL (1.20-3.40); Lymphocytes % (auto) 23.6 %; Mean Corpuscular Hemoglobin 29.7 pg (25.0-34.0); Mean Corpuscular Hgb Conc 33.6 g/dL (32.0-36.0); Mean Corpuscular Volume 88.5 fL (80.0-100.0); Mean Platelet Volume 9.8 fL (9.4-12.4); Monocytes # (auto) 1.15 K/uL (0.11-0.59); Monocytes % (auto) 12.9 %; Neutrophils # (auto) 5.59 K/uL (1.40-6.50); Neutrophils % (auto) 62.6 %; Platelet Count 260 K/uL (130-400); RDW Coefficient of Variation 12.3 % (11.5-14.5); RDW Standard Deviation 39.8 fL (36.4-46.3); White Blood Count 8.94 K/ul (4.8-10.8)
[2024-10-27 09:01] LABS: Albumin Globulin Ratio 1.8 (0.9-2); Albumin Level 4.1 gm/dl (3.4-5.0); BUN Creatinine Ratio 18.5 (10-20); Creatinine Clr Calc Pharmacy 63.4 ml/min; Globulin 2.3 gm/dl (2.5-4.0); Magnesium 1.8 mg/dl (1.7-2.4); Phosphorus 2.7 mg/dl (2.5-4.9); Potassium 3.5 mmol/L (3.5-5.1); Total Protein 6.4 gm/dl (6.0-8.3)
[2024-10-27] MEDS ORDERED: GLYCERIN ADULT 12 SUPP/BOX SUPP PR PRN (11:21)
--- NOTE | 2024-10-27 11:21 | Hospitalist Progress Note ---
Date of Service October 27, 2024 Assessment & Plan (1) Hypokalemia: Plan: Hypokalemia secondary to acute GI illness likely viral Gastroenteritis CT abdomen IMPRESSION: Findings suggesting gastroenteritis. Normal appendix is identified. Fibroid uterus. Prominent periuterine vessels are identified, especially on the left side of the uterus. Such findings could be seen with pelvic congestion syndrome. In addition, the endometrium appears prominent in size on CT. This final finding would be an abnormality in a postmenopausal patient. Recommend gynecology evaluation to exclude malignancy. 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 to monitor hyperlipidemia, on statin Rx hx mitral valve prolapse rheumatoid arthritis, stable on regimen Hyperglycemia r/o DM, current hemoglobin A1c 5.5% DVT prophylaxis. SCDs Full code Admission and Anticipated Discharge Date Admission Date: October 26, 2024 Subjective Pt seen in follow up of hypokalemia, n/v 2/2 gastroenteritis Pt reports vomiting since Friday. No vomiting yesterday but felt very weak. No diarrhea, Stool studies ordered in Ed but pt had no BM. Currently laying in bed in NAD, complains of GERD symptoms otherwise feels better. + constipation RN at the bedside and discussed with. No chest pain, no cough, no fevers Review of Systems Review of Systems: All systems reviewed & are unremarkable except as noted in Subjective Physical Exam Physical Exam: GENERAL: Comfortable, pleasant, no respiratory distress SKIN: Normal color, warm HEENT: NC/AT, EOMI NECK : Supple, no tenderness CHEST : CTA, no tenderness HEART : RRR, no obvious murmurs ABDOMEN: mild tenderness to palp., soft EXTREMITIES : No LE edema, moves extremities NEUROLOGIC : awake, alert, answers appropriately, no facial asymmetry, moves extremities Results & Data Results & Data Vital Signs (Past 12 Hours) Vital Signs Temp Pulse Pulse Resp BP BP Pulse Ox 10/27/24 11:03 36.9 C 65 18 161/84 H 98 10/27/24 08:06 36.7 C 73 16 106/72 97 10/27/24 03:36 10/27/24 03:36 37.1 C 64 16 146/81 H 95 10/27/24 01:35 10/27/24 00:21 62 Pulse Ox O2 Del Method O2 Del Method 10/27/24 11:03 Room Air 10/27/24 08:06 Room Air 10/27/24 03:36 Room Air 10/27/24 03:36 Room Air 10/27/24 01:35 98 Room Air 10/27/24 00:21 Laboratory Results 10/27/24 10/26/24 10/26/24 Range/Units 08:21 19:28 17:45 WBC 8.94 (4.8-10.8) K/ul RBC 3.90 L (4.20-5.40) M/uL Hgb 11.6 L (12.0-16.0) g/dl Hct 34.5 L (37.0-47.0) % MCV 88.5 (80.0-100.0) fL MCH 29.7 (25.0-34.0) pg MCHC 33.6 (32.0-36.0) g/dL RDW Std Deviation 39.8 (36.4-46.3) fL RDW Coeff of Cierra 12.3 (11.5-14.5) % Plt Count 260 (130-400) K/uL MPV 9.8 (9.4-12.4) fL Immature Gran % (Auto) 0.2 % Neut % (Auto) 62.6 % Lymph % (Auto) 23.6 % [place] % (Auto) 12.9 % Eos % (Auto) 0.3 % Baso % (Auto) 0.4 % Neut # (Auto) 5.59 (1.40-6.50) K/uL Lymph # (Auto) 2.11 (1.20-3.40) K/uL [place] # (Auto) 1.15 H (0.11-0.59) K/uL Eos # (Auto) 0.03 (0.00-0.50) K/uL Baso # (Auto) 0.04 (0.00-0.20) K/uL Immature Gran # (Auto) 0.02 (0.01-0.20) K/uL Sodium 139 (136-145) mmol/L Potassium 3.5 D (3.5-5.1) mmol/L Chloride 106 (98-107) mmol/L Carbon Dioxide 26 (21-32) mmol/L Anion Gap 7 (3-11) BUN 12 (6-23) mg/dl Creatinine 0.65 (0.6-1.2) mg/dl Est Cr Clr Drug Dosing 63.4 ml/min eGFR 96.44 BUN/Creatinine Ratio 18.5 (10-20) Glucose 97 (70-99(Fasting)) mg/dl Estimat Average Glucose mg/dl Hemoglobin A1c (4.5-5.6) % Calcium 9.0 (8.6-10.3) mg/dl Phosphorus 2.7 (2.5-4.9) mg/dl Magnesium 1.8 (1.7-2.4) mg/dl Total Bilirubin 1.0 (0.2-1.0) mg/dl AST 20 (13-39) U/L ALT 17 (7-52) U/L Alkaline Phosphatase 73 (34-104) U/L Total Protein 6.4 (6.0-8.3) gm/dl Albumin 4.1 (3.4-5.0) gm/dl Globulin 2.3 L (2.5-4.0) gm/dl Albumin/Globulin Ratio 1.8 (0.9-2) Lipase (11-82) U/L TSH (0.300-4.500) uIu/ml Urine Color Yellow Urine Appearance Clear (Clear) Urine pH 7.5 (4.5-7.5) Ur Specific [place] 1.022 (1.000-1.030) Urine Protein Negative (Negative) Urine Glucose (UA) Negative (Negative) Urine Ketones Trace H (Negative) Urine Blood Negative (Negative) Urine Nitrite Negative (Negative) Urine Bilirubin Negative (Negative) Urine Urobilinogen Negative (Negative) Ur Leukocyte Esterase 1+ H (Negative) Urine WBC (Auto) 0-5 (0-5) /hpf Urine RBC (Auto) 0-2 (0-2) /hpf U Hyaline Cast (Auto) 0-2 (0-2) /lpf U Epithel Cells (Auto) 0-2 (0-2) /hpf Urine Bacteria (Auto) None Seen (None Seen) Adenovirus (PCR) Not Detected (NotDetected) B. pertussis DNA (PCR) Not Detected (NotDetected) B.parapertussis DNA PCR Not Detected (NotDetected) C. pneumoniae DNA (PCR) Not Detected (NotDetected) Coronavirus OC43 (PCR) Not Detected (NotDetected) Coronavirus HKU1 (PCR) Not Detected (NotDetected) Coronavirus 229E (PCR) Not Detected (NotDetected) SARS-CoV-2 (PCR) Not Detected (NotDetected) Coronavirus NL63 (PCR) Not Detected (NotDetected) Human Metapneumovir PCR Not Detected (NotDetected) Influenza Type A (PCR) Not Detected (NotDetected) Influenza Type B (PCR) Not Detected (NotDetected) M. pneumoniae (PCR) Not Detected (NotDetected) Parainfluenza 1 (PCR) Not Detected (NotDetected) Parainfluenza 2 (PCR) Not Detected (NotDetected) Parainfluenza 3 (PCR) Not Detected (NotDetected) Parainfluenza 4 (PCR) Not Detected (NotDetected) RSV (PCR) Not Detected (NotDetected) Entero/Rhino (PCR) Not Detected (NotDetected) 10/26/24 Range/Units 16:00 WBC 12.01 H (4.8-10.8) K/ul RBC 4.47 (4.20-5.40) M/uL Hgb 13.7 (12.0-16.0) g/dl Hct 39.0 (37.0-47.0) % MCV 87.2 (80.0-100.0) fL MCH 30.6 (25.0-34.0) pg MCHC 35.1 (32.0-36.0) g/dL RDW Std Deviation 39.2 (36.4-46.3) fL RDW Coeff of Cierra 12.1 (11.5-14.5) % Plt Count 360 (130-400) K/uL MPV 9.8 (9.4-12.4) fL Immature Gran % (Auto) 0.2 % Neut % (Auto) 69.1 % Lymph % (Auto) 19.7 % [place] % (Auto) 10.4 % Eos % (Auto) 0.1 % Baso % (Auto) 0.5 % Neut # (Auto) 8.30 H (1.40-6.50) K/uL Lymph # (Auto) 2.36 (1.20-3.40) K/uL [place] # (Auto) 1.25 H (0.11-0.59) K/uL Eos # (Auto) 0.01 (0.00-0.50) K/uL Baso # (Auto) 0.06 (0.00-0.20) K/uL Immature Gran # (Auto) 0.03 (0.01-0.20) K/uL Sodium 136 (136-145) mmol/L Potassium 2.8 L (3.5-5.1) mmol/L Chloride 96 L (98-107) mmol/L Carbon Dioxide 30 (21-32) mmol/L Anion Gap 10 (3-11) BUN 18 (6-23) mg/dl Creatinine 0.74 (0.6-1.2) mg/dl Est Cr Clr Drug Dosing 55.7 ml/min eGFR 88.62 BUN/Creatinine Ratio 24.3 H (10-20) Glucose 110 H (70-99(Fasting)) mg/dl Estimat Average Glucose 111 mg/dl Hemoglobin A1c 5.5 (4.5-5.6) % Calcium 9.9 (8.6-10.3) mg/dl Phosphorus (2.5-4.9) mg/dl Magnesium 2.1 (1.7-2.4) mg/dl Total Bilirubin 1.3 H (0.2-1.0) mg/dl AST 26 (13-39) U/L ALT 22 (7-52) U/L Alkaline Phosphatase 89 (34-104) U/L Total Protein 7.7 (6.0-8.3) gm/dl Albumin 5.0 (3.4-5.0) gm/dl Globulin 2.7 (2.5-4.0) gm/dl Albumin/Globulin Ratio 1.9 (0.9-2) Lipase 24 (11-82) U/L TSH 1.182 (0.300-4.500) uIu/ml Urine Color Urine Appearance (Clear) Urine pH (4.5-7.5) Ur Specific [place] (1.000-1.030) Urine Protein (Negative) Urine Glucose (UA) (Negative) Urine Ketones (Negative) Urine Blood (Negative) Urine Nitrite (Negative) Urine Bilirubin (Negative) Urine Urobilinogen (Negative) Ur Leukocyte Esterase (Negative) Urine WBC (Auto) (0-5) /hpf Urine RBC (Auto) (0-2) /hpf U Hyaline Cast (Auto) (0-2) /lpf U Epithel Cells (Auto) (0-2) /hpf Urine Bacteria (Auto) (None Seen) Adenovirus (PCR) (NotDetected) B. pertussis DNA (PCR) (NotDetected) B.parapertussis DNA PCR (NotDetected) C. pneumoniae DNA (PCR) (NotDetected) Coronavirus OC43 (PCR) (NotDetected) Coronavirus HKU1 (PCR) (NotDetected) Coronavirus 229E (PCR) (NotDetected) SARS-CoV-2 (PCR) (NotDetected) Coronavirus NL63 (PCR) (NotDetected) Human Metapneumovir PCR (NotDetected) Influenza Type A (PCR) (NotDetected) Influenza Type B (PCR) (NotDetected) M. pneumoniae (PCR) (NotDetected) Parainfluenza 1 (PCR) (NotDetected) Parainfluenza 2 (PCR) (NotDetected) Parainfluenza 3 (PCR) (NotDetected) Parainfluenza 4 (PCR) (NotDetected) RSV (PCR) (NotDetected) Entero/Rhino (PCR) (NotDetected) Medications Administered Current Inpatient Medications Acetaminophen (Acetaminophen 325 Mg Tab) 650 mg PO QID PRN PRN Reason: pain/fever Stop: 11/25/24 23:08 Amlodipine Besylate (Amlodipine Besylate 5 Mg Tab) 10 mg PO DAILY NITHYA Stop: 11/26/24 08:59 Atenolol (Atenolol 25 Mg Tablet) 25 mg PO DAILY INTHYA Stop: 11/26/24 08:59 Atorvastatin Calcium (Atorvastatin 40 Mg Tab) 40 mg PO DAILY NITHYA Stop: 11/26/24 08:59 Duloxetine HCl (Duloxetine Hcl 60 Mg Cap) 60 mg PO DAILY NITHYA Stop: 11/26/24 08:59 Folic Acid (Folic Acid 1 Mg Tab) 3 mg PO DAILY NITHYA Stop: 11/26/24 08:59 Gabapentin (Gabapentin 300 Mg Cap) 600 mg PO BID NITHYA Stop: 11/26/24 08:59 Glycerin (Glycerin Adult 12 Supp/Box Supp) 1 supp [place] DAILY PRN PRN Reason: Constipation Stop: 11/26/24 11:20 Promethazine HCl (Phenergan) 6.25 mg in 50.25 mls @ 201 mls/hr IV Q6H PRN PRN Reason: Nausea And Vomiting Stop: 11/25/24 23:08 Last Infusion: 10/27/24 00:39 Dose: Infused Potassium Chloride/Sodium Chloride (Normal Saline W/20 Meq Kcl) 20 meq in 1,000 mls @ 60 mls/hr IV .[id number] ONE Stop: 10/27/24 16:34 Last Infusion: 10/27/24 01:06 Dose: 60 mls/hr Lorazepam (Lorazepam 0.5 Mg Tab) 0.5 mg PO TID PRN PRN Reason: Anxiety Stop: 11/25/24 23:52 Last Admin: 10/27/24 00:14 Dose: 0.5 mg Multivitamins (Multivitamin Tab) 1 tab PO DAILY [facility] Stop: 11/26/24 08:59 Oxycodone HCl (Oxycodone Hcl Ir 5 Mg Tab (Immediate Release)) 5 mg PO Q4H PRN PRN Reason: Pain Stop: 11/09/24 23:54 Polyethylene Glycol (Polyethylene (Miralax) 17 Gm Pack) 17 gm PO DAILY PRN PRN Reason: Constipation Stop: 11/26/24 11:20 Sucralfate (Sucralfate 1 Gm/10 Ml Udc) 1 gm PO QID NITHYA Stop: 11/26/24 12:59 Trazodone HCl (Trazodone Hcl 100 Mg Tab) 100 mg PO HS [facility] Stop: 11/25/24 23:54 Last Admin: 10/27/24 00:08 Dose: Not Given
[2024-10-27] MEDS: amLODIPine BESYLATE 5 MG TAB PO SCH (11:27)
[2024-10-27] MEDS: GABAPENTIN 300 MG CAP PO SCH (11:27)
[2024-10-27] MEDS: ATENOLOL 25 MG TABLET PO SCH (11:29)
[2024-10-27] MEDS: FOLIC ACID 1 MG TAB PO SCH (11:29)
[2024-10-27] MEDS: MULTIVITAMIN TAB PO SCH (11:30)
[2024-10-27] MEDS: DULoxetine HCL 60 MG CAP PO SCH (11:30)
[2024-10-27] MEDS: ATORVASTATIN 40 MG TAB PO SCH (11:30)
[2024-10-27] MEDS: SUCRALFATE 1 GM/10 ML UDC PO SCH (13:05)
[2024-10-27] MEDS: FAMOTIDINE 20MG IV PUSH 20 MG/5 ML SYR IV STA (13:15)
[2024-10-27] MEDS ORDERED: Nursing to Pharmacy Communication SCH (16:15)
[2024-10-27] MEDS: POLYETHYLENE (MIRALAX) 17 GM PACK PO PRN (16:45)
[2024-10-27] MEDS: FAMOTIDINE 20MG IV PUSH 20 MG/5 ML SYR IV SCH (20:19)
--- NOTE | 2024-10-27 21:17 | Electrocardiogram Report ---
Test Reason : Blood Pressure : */* mmHG Vent. Rate : 58 BPM Atrial Rate : 58 BPM P-R Int : 136 ms QRS Dur : 84 ms QT Int : 448 ms P-R-T Axes : 35 -39 10 degrees QTcB Int : 439 ms Sinus bradycardia Left axis deviation Possible Anterior infarct , age undetermined Abnormal ECG When compared with ECG of 03-Apr-2018 11:39, QRS axis Shifted left Nonspecific T wave abnormality now evident in Anterior leads Confirmed by Russell Wilkerson ([id number]) on 10/27/2024 9:17:08 PM Referred By: REFERRED SELF Confirmed By: Russell Wilkerson
[2024-10-27] MEDS: ALBUTEROL HFA 8 GM INHALER INH PRN (22:21)
[2024-10-28 04:02] VITALS: RESP 16
[2024-10-28 05:56] LABS: Hematocrit (blood only) 33.8 % (37.0-47.0); Hemoglobin 11.5 g/dl (12.0-16.0); Mean Corpuscular Hemoglobin 30.3 pg (25.0-34.0); Mean Corpuscular Volume 89.2 fL (80.0-100.0); Mean Platelet Volume 9.7 fL (9.4-12.4); Platelet Count 249 K/uL (130-400); RDW Coefficient of Variation 12.3 % (11.5-14.5); RDW Standard Deviation 40.3 fL (36.4-46.3); Red Blood Count 3.79 M/uL (4.20-5.40); White Blood Count 8.69 K/ul (4.8-10.8)
[2024-10-28 06:14] LABS: BUN Creatinine Ratio 17.1 (10-20); Calcium 9.2 mg/dl (8.6-10.3); Creatinine Clr Calc Pharmacy 54.2 ml/min; Magnesium 1.8 mg/dl (1.7-2.4); Phosphorus 3.7 mg/dl (2.5-4.9); Potassium 3.4 mmol/L (3.5-5.1)
[2024-10-28] MEDS: POTASSIUM CHLORIDE CRTAB 20 MEQ TABCR PO STA (08:14)
[2024-10-28 12:04] VITALS: BP 108/68; TEMP 98.4; O2SAT 97
--- NOTE | 2024-10-28 14:28 | Discharge Summary ---
Date of Service October 28, 2024 Admission HPI Per Admitting Provider History obtained from patient and records. Medical history significant for hypertension, hyperlipidemia, mitral valve prolapse, GERD, rheumatoid arthritis, sacroiliitis as per records, mood disorder. Few days history of achy epigastric pain with nausea vomiting symptoms. No diarrhea. Transient headache symptoms. Not sure about sick contacts. Denies chest pain, SOB. Intractable symptoms at the ER. Medical History as above Surgical History : Back surgery, bone grafting, , cataract surgeries, skin grafting Family History : DM, heart disease, COPD Personal/Social history : Non-smoker, occasional EtOH intake, retired elementary vocal music teacher Admission Exam Per Admitting Provider GENERAL: Comfortable, pleasant, no respiratory distress SKIN: Normal color, warm HEENT: [place] palpebral conjunctivae, no ptosis, dry buccal mucosa NECK : Supple, no tenderness CHEST : CTA, no tenderness HEART : RRR, no obvious murmurs ABDOMEN: Some distention, right upper quadrant tenderness EXTREMITIES : No LE swelling/tenderness, no other conspicuous deformities noted NEUROLOGIC : Coherent, no facial asymmetry, no other gross focality Principal Diagnosis Hypokalemia Gastroenteritis Discharge Exam GENERAL: Comfortable, pleasant, no respiratory distress SKIN: Normal color, warm HEENT: NC/AT, EOMI NECK : Supple, no tenderness CHEST : CTA, no tenderness HEART : RRR, no obvious murmurs ABDOMEN: mild tenderness to palp., soft, + bowel sounds EXTREMITIES : No LE edema, moves extremities NEUROLOGIC : awake, alert, answers appropriately, no facial asymmetry, moves extremities Discharge Data Allergies Allergy/AdvReac Type Severity Reaction Status Date / Time Sulfa (Sulfonamide Allergy Unknown SWELLS Verified 03/08/24 13:41 Antibiotics) face tongue Consultations 10/27/24 00:37 ED Decision to Admit Stat Ordered Studies 10/26/24 18:15 CT abd pelvis IV con only Stat IMPRESSION: Findings suggesting gastroenteritis. Normal appendix is identified. Fibroid uterus. Prominent periuterine vessels are identified, especially on the left side of the uterus. Such findings could be seen with pelvic congestion syndrome. In addition, the endometrium appears prominent in size on CT. This final finding would be an abnormality in a postmenopausal patient. Recommend gynecology evaluation to exclude malignancy. 10/26/24 23:47 US gallbladder Stat IMPRESSION: 1. Normal findings in the liver, gallbladder, and biliary tree. 2. Limited views of the right kidney, however, a trace of perinephric fluid was noted. Clinical correlation and further evaluation are advised. 3. No interval changes. Hospital Course (1) Hypokalemia: Hypokalemia secondary to acute GI illness likely viral Gastroenteritis CT abdomen IMPRESSION: Findings suggesting gastroenteritis. Normal appendix is identified. Fibroid uterus. Prominent periuterine vessels are identified, especially on the left side of the uterus. Such findings could be seen with pelvic congestion syndrome. In addition, the endometrium appears prominent in size on CT. This final finding would be an abnormality in a postmenopausal patient. Recommend gynecology evaluation to exclude malignancy. admitted medical telemetry Replace potassium as needed Supportive management for presumptive viral GI illness 10/28 Pt feels improved, tolerated liquid diet and now advanced to regular. No vomiting. Seen ambulating in hallways. Pt feels she can continue to recover at home. Will DC on potassium and magnesium supplement. Sucralfate already sent to pharmacy by ED. Recommend follow up with PCP (and she will also need follow up w/ gynecology). Abnormal endometrium on CT findings - pt follows w/ outpt [facility]- Dr. No Polanco Chronic conditions: hypertension, slightly elevated , cont. to monitor hyperlipidemia, on statin Rx hx mitral valve prolapse rheumatoid arthritis, stable on regimen Hyperglycemia r/o DM, current hemoglobin A1c 5.5% Total Time Total Time Spent Total Time Spent (In Minutes): 40 Discharge Plan Discharge Items Patient Disposition: Home - Self-Care Reason For Visit: HYPOKALEMIA Discharge Diagnosis: Hypokalemia Gastroenteritis Activity: Per Instructions section Non-emergency contact: Primary Care Provider Call non-emergency contact if: you have any medication questions and your symptoms worsen Follow-up/Referrals: Lalit Perera DO [Primary Care Provider] - (Date & Time 11/01/2024 2:20 PM Provider Lalit Perera DO Department [facility] ) Diet: Regular Addtl Attending Provider Instructions: Follow up with primary care physician within 1-2 weeks. Take potassium and magnesium supplement for the next several days. Make sure to stay hydrated, drink water/ gatorade, advance your diet as tole rated. Also follow up with your olive packer - regarding thickened endometrium seen on CT. Pending Studies at Discharge: No Stand-Alone Forms: My [employer], Smoking Cessation Medications and DC Order Prescriptions: New sucralfate [Carafate] 100 mg/mL suspension 10 ml PO QID Qty: 420 0RF Rx Instructions: swish in mouth and swallow; use after food/drink: May substitute tablets as a slurry. dicyclomine 20 mg tablet 20 mg PO QID Qty: 20 0RF ondansetron 4 mg tablet,disintegrating 4 mg PO Q6H PRN (Reason: nausea and vomiting) Qty: 14 0RF potassium chloride [Klor-Con M20] 20 mEq tablet,ER particles/crystals 20 meq PO BID Qty: 10 0RF magnesium oxide 400 mg (241.3 mg magnesium) Tablet 400 mg PO BID 3 Days Qty: 6 0RF Continued atenolol 50 mg tablet 50 mg PO DAILY folic acid 1 mg tablet 3 mg PO DAILY meloxicam 15 mg tablet 15 mg PO DAILY duloxetine 60 mg capsule,delayed release(DR/EC) 60 mg PO DAILY valacyclovir 1 gram tablet 1 mg PO TID PRN (Reason: FEVER BLISTERS) tizanidine 2 mg capsule 2 mg PO Q8H PRN (Reason: Unknown) leflunomide [Arava] 10 mg tablet 10 mg PO DAILY trazodone 50 mg tablet 100 mg PO DAILY Rx Instructions: bed time atorvastatin 40 mg tablet 40 mg PO DAILY multivitamin Tablet 1 tab PO DAILY amlodipine 5 mg tablet 10 mg PO DAILY gabapentin 300 mg capsule 600 mg PO BID Discharge Orders: Discharge Order (Routine); Ordered 10/28/24 Ordered By: Kwadwo Rosen Admission Data Admit Date/Time: 10/26/24 23:07 Attending Provider: Kwadwo Rosen Admit Provider: Pranav Gallegos Primary Care Provider: Lalit Perera Other Providers: Pranav Gallegos
[2024-10-28] MEDS: MAGNESIUM OXIDE 400 MG TAB PO SCH (14:35)
[2024-10-28 14:58] VITALS: PULSE 77
== END 2024-10-28 15:34 | disposition home or self-care (01) | DRG 392 ==
LOC: ED 14:28 → EDINP 23:07 → 2N 10-27 01:35